=== PATIENT | female | born 1990 | race American Indian/Alaskan Native ===

== ENCOUNTER 2017-08-23 18:20 | Inpatient (IN) | payer MEDICAID ==
[2017-08-23] MEDS ORDERED: TYLENOL ONE ×2 (19:26→20:11)
[2017-08-23] MEDS ORDERED: TYLENOL PO STA (19:38)
[2017-08-23] MEDS ORDERED: NACL 0.9% 500 ML 500 ML IV ONE (19:38)
[2017-08-23 19:49] LABS: Basophils % (Auto) 0.4 % (0.0-1.8); Eosinophils % (Auto) 0.4 % (0.0-4.3); Hematocrit 31.6 % (30.3-42.9); Hemoglobin 10.3 gm/dl (10.1-14.3); Lymphocytes # (Auto) 0.7 K/mm3 (1.2-5.4); Lymphocytes % (Auto) 6.4 % (13.4-35.0); Mean Corpuscular HGB Conc 33 % (30-34); Mean Corpuscular Hemoglobin 27 pg (28-32); Mean Corpuscular Volume 83 fl (79-97); Monocytes # (Auto) 0.3 K/mm3 (0.0-0.8); Monocytes % (Auto) 3.1 % (0.0-7.3); Platelet Count 345 K/mm3 (140-440)
[2017-08-23 19:59] LABS: INR 0.97 (0.87-1.13)
[2017-08-23 20:01] LABS: Alanine Aminotransferase 8 units/L (7-56); BUN/Creatinine Ratio 17; Blood Urea Nitrogen 10 mg/dL (7-17); Calcium 8.7 mg/dL (8.4-10.2); Hemolysis Index 6
[2017-08-23] MEDS ORDERED: ZITHROMAX 500 MG in NACL 0.9% 250ML 250 ML IV ONE (20:40)
[2017-08-23] MEDS ORDERED: cefTRIAXone 1 GM in NACL 0.9% 20 ML IV ONE (20:40)
[2017-08-23] MEDS ORDERED: XOPENEX IH ONE (20:41)
[2017-08-23] MEDS ORDERED: TORADOL IV ONE (20:42)
--- NOTE | 2017-08-23 20:53 | Emergency Department Report ---
HPI - General Chief Complaint: Dyspnea/Respdistress Time Seen by Provider: 08/23/17 20:15 - HPI HPI: 27-year-old AA female presents to the emergency department via EMS from home with complaint of a one-week history of progressively worsening shortness of breath, productive cough, joint pain, abdominal pain, nausea, vomiting, diarrhea , intermittent blurry vision. Apparently the patient also had hypoxia with a room air oxygen of 86% upon EMS arrival and she was placed on a nonrebreather. The patient went to another hospital about 2 weeks ago for oral thrush. She says that shortly after starting taking that medication she began developing some of the symptoms and wonders if it is related. She is a former smoker but has not smoked since the thrush. She denies any past medical history other then some recurrent bronchitis. She's not had a primary care physician. She did not take anything for her symptoms prior to presentation. She presents with a fever of 103 Fahrenheit and says that she did not check her temperature at home but she has had moments where she felt warm and shaky with chills. No recent travel or sick contacts at home. ED Past Medical Hx - Past Medical History Previous Medical History?: Yes Hx Asthma: Yes Additional medical history: thrush. bacterial vag - Surgical History Past Surgical History?: No - Social History Smoking Status: Never Smoker Substance Use Type: None - Medications Home Medications: Home Medications Medication Instructions Recorded Confirmed Last Taken Type No Known Home Medications [No 08/24/17 08/24/17 Unknown History Reported Home Medications] ED Review of Systems ROS: Stated complaint: GENERAL ILLNESS Other details as noted in HPI Comment: All other systems reviewed and negative Constitutional: chills, fever Eyes: vision change. denies: eye pain, eye discharge ENT: denies: ear pain, throat pain Respiratory: cough, shortness of breath. denies: wheezing Cardiovascular: denies: chest pain, palpitations Gastrointestinal: abdominal pain, nausea, vomiting, diarrhea Genitourinary: denies: urgency, dysuria, discharge Musculoskeletal: arthralgia, myalgia Skin: denies: rash, lesions Neurological: denies: numbness, paresthesias Physical Exam - Physical Exam Vital Signs: Vital Signs 08/23/17 19:28 Temperature 103.1 F H Pulse Rate 118 H Respiratory 24 Rate Blood Pressure 101/64 O2 Sat by Pulse 91 Oximetry Physical Exam: GENERAL: The patient is well-developed well-nourished. HENT: Normocephalic. Atraumatic. Patient has moist mucous membranes. EYES: Extraocular motions are intact. Pupils equal reactive to light bilaterally. NECK: Supple. Trachea is midline. CHEST/LUNGS: There is some rhonchi heard throughout the lungs. There is tachypnea but no accessory muscle use. There is no respiratory distress noted. HEART/CARDIOVASCULAR: Regular. There is mild to moderate tachycardia. There is no murmur. ABDOMEN: Abdomen is soft, nontender. Patient has normal bowel sounds. There is no abdominal distention. SKIN: Skin is hot but dry. NEURO: The patient is awake, alert, and oriented. The patient is cooperative. The patient has no focal neurologic deficits. The patient has normal speech. MUSCULOSKELETAL: There is no tenderness or deformity. There is no limitation range of motion. There is no evidence of acute injury. ED Course Vital Signs 08/23/17 19:28 Temperature 103.1 F H Pulse Rate 118 H Respiratory 24 Rate Blood Pressure 101/64 O2 Sat by Pulse 91 Oximetry ED Medical Decision Making - Lab Data Result diagrams: 08/23/17 19:40 08/23/17 19:40 - EKG Data -: EKG Interpreted by Me EKG shows normal: sinus rhythm, axis, intervals, QRS complexes, ST-T waves Rate: tachycardia (107 bpm) - EKG Data When compared to previous EKG there are: previous EKG unavailable Interpretation: normal EKG (with tachycardia 107 bpm) - Radiology Data Radiology results: report reviewed, image reviewed interpreted by me: Chest x-ray shows some opacity or infiltrate towards the right lower lung concerning for pneumonia. No obvious pleural effusions. PROCEDURE: CT ANGIO CHEST TECHNIQUE: Computerized tomographic angiography of the chest was performed after the IV injection of iodinated nonionic contrast including image processing. The image data was postprocessed using 2-dimensional multiplanar reformatted (MPR) and 3-dimensional (MIP and/or volume rendered) techniques. HISTORY: SOB, elevated dimer COMPARISON: No prior studies are available for comparison. FINDINGS: Heart and pericardium: Normal. Thoracic aorta: Normal. Pulmonary vasculature: There is no evidence of pulmonary arterial emboli. Lymph nodes: No enlarged thoracic lymph nodes. Lungs: Scattered infiltrates identified throughout both lungs. Mild atelectasis bilateral lower lungs. No effusion or pneumothorax. The central airway is patent. Pleural space: No effusion, thickening, or pneumothorax. Musculoskeletal structures: No significant abnormality. Upper abdominal structures: No significant abnormality. IMPRESSION: Scattered infiltrates throughout both lungs. Mild atelectasis both lower lungs. There is no evidence of pulmonary arterial emboli. Transcribed By: [facility] Dictated By: JACE RICH MD Electronically Authenticated By: JACE RICH MD Signed Date/Time: 08/23/17 6803 - Medical Decision Making Patient presents with multiple complaints including body aches, fever, chills, cough, shortness of breath. She appears to have pneumonia and sepsis. The labs are mostly unremarkable. However the lungs sounded rhonchorous on examination and she has some tachycardia and tachypnea. Chest x-ray showed some concern for right lower lobe infiltrate. The patient's labs show a very elevated d-dimer and therefore a CT angiography was done that showed scattered infiltrates throughout both lungs. The patient began having some hypotension that improved or responded to IV fluid. However she will be admitted to the hospital for further evaluation and treatment. Blood culture sent and the patient was started on azithromycin and Rocephin for community-acquired pneumonia. Patient was accepted for admission by the hospitalist, Dr. Vieira. - Differential Diagnosis Pneumonia, Sepsis, HIV, Influenza Critical Care Time: No Critical care attestation.: If time is entered above; I have spent that time in minutes in the direct care of this critically ill patient, excluding procedure time. ED Disposition Clinical Impression: Sepsis Qualifiers: Sepsis type: sepsis due to unspecified organism Qualified Code(s): A41.9 - Sepsis, unspecified organism Pneumonia Qualifiers: Pneumonia type: due to unspecified organism Laterality: unspecified laterality Lung location: unspecified part of lung Qualified Code(s): J18.9 - Pneumonia, unspecified organism Hypotension Qualifiers: Hypotension type: unspecified hypotension type Qualified Code(s): I95.9 - Hypotension, unspecified Disposition: 09 OP ADMIT IP TO THIS HOSP Is pt being admited?: Yes Condition: Fair Instructions: Bacterial Pneumonia (ED) Referrals: PRIMARY CARE, [Primary Care Provider] - 3-5 Days Time of Disposition: 02:04
[2017-08-23 21:54] LABS: Bacteria,Urine 1+ /HPF (Negative); Bilirubin,Urine NEG (Negative); Blood,Urine NEG (Negative); Color,Urine Yellow (Yellow); Mucus,Urine FEW /HPF; Protein,Urine <15 mg/dL mg/dL (Negative); Urobilinogen,Urine < 2.0 mg/dL (<2.0)
--- NOTE | 2017-08-23 22:01 | XRay Report ---
FINAL REPORT EXAM: XR CHEST 1V AP HISTORY: possible Sepsis TECHNIQUE: AP portable view(s) of the chest obtained. PRIORS: None. FINDINGS: No mediastinal shift. Cardiac silhouette is not enlarged. No pneumothorax or effusion. Ill-defined right basilar opacity. No acute skeletal finding. IMPRESSION: Ill-defined right basilar opacity may represent superimposition of breast tissue, atelectasis and/or infection. Consider lateral chest radiograph and/or follow-up.
[2017-08-23] MEDS ORDERED: NACL 0.9% 1000 ML 1,000 ML IV ONE (22:10)
[2017-08-23] MEDS ORDERED: DUONEB *Not for PRN Use IH ONE (22:11)
[2017-08-23] MEDS ORDERED: NACL ONE (22:54)
--- NOTE | 2017-08-23 23:57 | Cat Scan Report ---
FINAL REPORT PROCEDURE: CT ANGIO CHEST TECHNIQUE: Computerized tomographic angiography of the chest was performed after the IV injection of iodinated nonionic contrast including image processing. The image data was postprocessed using 2-dimensional multiplanar reformatted (MPR) and 3-dimensional (MIP and/or volume rendered) techniques. HISTORY: SOB, elevated dimer COMPARISON: No prior studies are available for comparison. FINDINGS: Heart and pericardium: Normal. Thoracic aorta: Normal. Pulmonary vasculature: There is no evidence of pulmonary arterial emboli. Lymph nodes: No enlarged thoracic lymph nodes. Lungs: Scattered infiltrates identified throughout both lungs. Mild atelectasis bilateral lower lungs. No effusion or pneumothorax. The central airway is patent. Pleural space: No effusion, thickening, or pneumothorax. Musculoskeletal structures: No significant abnormality. Upper abdominal structures: No significant abnormality. IMPRESSION: Scattered infiltrates throughout both lungs. Mild atelectasis both lower lungs. There is no evidence of pulmonary arterial emboli.
[2017-08-24] MEDS ORDERED: NACL 0.9% 1000 ML 1,000 ML IV ONE ×2 (00:03→04:20)
[2017-08-24] MEDS ORDERED: ZOFRAN IV PRN (02:41)
--- NOTE | 2017-08-24 06:46 | History and Physical Report ---
CHIEF COMPLAINT: Shortness of breath. HISTORY OF PRESENT ILLNESS: The patient is a 27-year-old female who presented to the Emergency Room with difficulty in breathing, productive cough, body aches involving the joints and the abdomen. There is also history of nausea and vomiting and intermittently blurry vision. The patient was brought in by EMS who found that the patient's O2 sat was as low as 86 and the patient was put on 100% on nonrebreather. The patient states she was sick about 2 weeks ago with oral thrush and was placed on some medication, which she said that she took and then started developing these symptoms and was wondering whether it is related to the medication. The patient denied history of chest pain, has fever as high as 103 degrees Fahrenheit. There is no history of recent overseas travel. PAST MEDICAL HISTORY: Pertinent for asthma and thrush. PAST SURGICAL HISTORY: Unremarkable. FAMILY HISTORY: Noncontributory. SOCIAL HISTORY: The patient does not smoke cigarettes, used to smoke before. Does not drink alcohol and does not use illicit drugs. MEDICATIONS: The patient is not on any medications currently. ALLERGIES: There are no known drug allergies. REVIEW OF SYSTEMS: CONSTITUTIONAL: There is fever. There are chills, but no diaphoresis. HEENT: There is no headache or sore throat. CARDIOVASCULAR: There is no chest pain or orthopnea. RESPIRATORY: Shortness of breath is present, cough present. GASTROINTESTINAL: There is nausea and vomiting, but no abdominal pain, diarrhea or constipation. NEUROLOGICAL: There is no numbness, no dizziness. There is blurry vision. No altered mental status. MUSCULOSKELETAL: There are body aches and joint pain. DERMATOLOGICAL: There is no skin rash or itching. GENITOURINARY: There is no dysuria, hematuria or flank pain. Rest of system review is normal. PHYSICAL EXAMINATION: GENERAL: At the time of exam, the patient was found to be alert, oriented x 3 and not in acute distress. VITAL SIGNS: At the time of presentation showed elevated temperature of 103.1 degrees Fahrenheit, pulse of 118, respiratory rate of 24, blood pressure of 101/64, O2 sat of 91% on room air. HEENT: Showed pupils to be equal, round, reactive to light and accommodation. Extraocular motions are intact. NECK: Supple with no JVD or carotid bruit. CARDIOVASCULAR: Showed normal first and second heart sounds with no gallops or murmur, but heart rate is fast. RESPIRATORY: Shows reduced air entry on both sides of the lung with scattered crackles. GASTROINTESTINAL: Shows abdomen to be full, soft, nontender with no organomegaly or rigidity. NEUROLOGICAL: Shows no focal deficit. MUSCULOSKELETAL: Shows no joint swelling or tenderness. DERMATOLOGICAL: Showing no skin rash. GENITOURINARY: Showing no costovertebral angle tenderness. PERTINENT LABORATORY DATA AND IMAGING STUDIES: The patient had chest x-ray done that shows right basilar opacity that may represent superimposition of breast tissue, this was atelectasis or infection. Consider later a chest radiograph according to the radiologist and followup x-ray. The patient had CT angiogram done that shows scattered infiltrates throughout both lungs, mild atelectasis of both lower lungs. CT shows no evidence of pulmonary emboli. DIAGNOSES: Pneumonia bilaterally. PLAN: The patient will be admitted to medical floor and will be on IV ceftriaxone 1 g daily as well as Zithromax 500 mg daily. The patient will also be on Tylenol 650 mg by mouth every 4 hours for fever, headache and will be on Robitussin 200 mg by mouth every 4 hours for cough. The patient will be on oxygen by nasal cannula at 2 liter per minute and will be on Zofran 4 mg every 8 hours IV for nausea and vomiting. The patient will be on heparin 5000 units q. 12 hours for DVT prophylaxis. JOB# [id number] OCN/NTS
[2017-08-24] MEDS ORDERED: DUONEB *Not for PRN Use IH ONE (09:57)
[2017-08-24] MEDS ORDERED: ZITHROMAX 500 MG in NACL 0.9% 250ML 250 ML IV SCH (10:00)
[2017-08-24] MEDS ORDERED: cefTRIAXone 1 GM in NACL 0.9% 20 ML IV SCH (10:00)
[2017-08-24] MEDS ORDERED: ROCEPHIN/NS 1 GM/50 ML 1 GM/50 ML BAG IV SCH (10:00)
--- NOTE | 2017-08-24 10:06 | Event Note ---
Date: 08/24/17 Patient seen and examined. An additional 32 minutes spent after admission. We will continue the plan as outlined in H&P.
[2017-08-24] MEDS: HEPARIN SUB-Q SCH ×2 (10:27→21:32)
[2017-08-24] MEDS: ROBITUSSIN PO PRN ×3 (10:39→21:32)
[2017-08-24] MEDS: TYLENOL PO PRN ×3 (10:40→23:33)
[2017-08-24] MEDS: NACL 0.9% 1000 ML 1,000 ML IV SCH (17:30)
[2017-08-25] MEDS: ROBITUSSIN PO PRN (01:12)
[2017-08-25] MEDS: DUONEB *Not for PRN Use IH SCH ×4 (05:25→20:59)
[2017-08-25] MEDS: TESSALON PERLES PO SCH ×3 (06:20→18:04)
[2017-08-25] MEDS: TYLENOL PO PRN (06:22)
[2017-08-25] MEDS ORDERED: PHENERGAN DM PO PRN (06:59)
[2017-08-25] MEDS ORDERED: ZOSYN/NS 4.5GM/100ML 4.5 GM/100 ML VIAL IV SCH (07:00)
[2017-08-25] MEDS ORDERED: VANCOMYCIN PHARMACY TO DOSE IV SCH (07:00)
[2017-08-25 07:26] LABS: Hematocrit 27.8 % (30.3-42.9); Hemoglobin 9.2 gm/dl (10.1-14.3); Mean Corpuscular HGB Conc 33 % (30-34); Mean Corpuscular Hemoglobin 27 pg (28-32); Mean Corpuscular Volume 82 fl (79-97); Platelet Count 296 K/mm3 (140-440); Red Blood Count 3.38 M/mm3 (3.65-5.03)
[2017-08-25] MEDS: NACL 0.9% 1000 ML 1,000 ML IV SCH (07:42)
[2017-08-25 07:44] LABS: BUN/Creatinine Ratio 18; Blood Urea Nitrogen 7 mg/dL (7-17); Calcium 8.1 mg/dL (8.4-10.2); Hemolysis Index 3
[2017-08-25] MEDS ORDERED: VANCOMYCIN/0.45 NS 1 GM/250 ML 1 GM/250 ML BAG IV ONE ×2 (08:00→10:30)
[2017-08-25] MEDS ORDERED: DUONEB *Not for PRN Use IH SCH (08:00)
[2017-08-25 08:20] LABS: Band Neutrophils # (Manual) 0.7 K/mm3; Basophils % (Manual) 0 % (0.0-1.8); Eosinophils % (Manual) 0 % (0.0-4.3); Total Cells Counted 100
[2017-08-25 08:21] LABS: Anisocytosis 1+
[2017-08-25 08:22] LABS: Hypochromasia Few; Large Platelets Few
[2017-08-25] MEDS: LEVAQUIN 750MG/150ML 750 MG/150 ML BAG IV SCH (09:45)
[2017-08-25] MEDS: DIFLUCAN PO SCH (09:46)
[2017-08-25] MEDS: PROTONIX PO SCH (09:46)
[2017-08-25] MEDS: HEPARIN SUB-Q SCH ×2 (09:49→22:35)
[2017-08-25] MEDS ORDERED: BACTRIM DS PO SCH ×2 (10:00)
--- NOTE | 2017-08-25 12:54 | Progress Note ---
Assessment and Plan Assessment and plan: Patient is 27-year-old woman with a history of asthma who presents with shortness of breath, pulse ox 86%. Patient denies having HIV. -Acute hypoxia respiratory failure: Treated with oxygen -Bilateral pneumonia: Treated with IV antibiotics, discussed with the possible PCP, added Bactrim and IV steroids -Oral Thrush: Consulted ID, ordered Diflucan -Severe cough: Added promethazine for cough at night and Robitussin-AC -?HIV: I d/w ID and ordered rapid HIV test. History Interval history: Patient was seen and examined. Follow-up on current diagnosis of fever which is present. Overnight uneventful. Patient denies any chest pain, shortness breath, nausea/vomiting or severe headaches. Imaging, nursing note, chart, labs and old chart reviewed. Discussed with patient. Mother bedside. Patient main complaint is cough, robitussion, Tessalon Perles not helping. She says promethazine helps. Hospitalist Physical - Physical exam Narrative exam: GEN: Thin frail ill-appearing, NAD, AWAKE, ALERT, ORIENTATED 3 HEENT: NCAT, EOMI, PERRL, OP whitish plaques NECK: supple, no adenopathy, no thyromegaly, no JVD CVS/HEART: RRR, NORMAL S1S2, pulses present bilaterally CHEST/LUNGS: Bibasilar crackles with coarse breath sounds bilaterally Symmetrical chest expansion, diminished air entry bilaterally GI/Abdomen: soft, NTND, good bowel sounds, no guarding or rebound /Bladder: no suprapubic tenderness, no CVA or paraspinal tenderness EXT/Skin: no c/c/e, no obvious rash MSK: FROM x 4 Neuro: CN 2-12 grossly intact, no new focal deficits Psych: Anxious - Constitutional Vitals: Temp Pulse Resp BP Pulse Ox 101.2 F H 93 H 20 103/54 96 08/25/17 09:41 08/25/17 10:00 08/25/17 10:00 08/25/17 09:41 08/25/17 10:00 Results - Labs CBC & Chem 7: 08/25/17 06:39 08/25/17 06:39 Labs: Laboratory Last Values WBC 8.9 K/mm3 (4.5-11.0) 08/25/17 06:39 RBC 3.38 M/mm3 (3.65-5.03) L 08/25/17 06:39 Hgb 9.2 gm/dl (10.1-14.3) L 08/25/17 06:39 Hct 27.8 % (30.3-42.9) L 08/25/17 06:39 MCV 82 fl (79-97) 08/25/17 06:39 MCH 27 pg (28-32) L 08/25/17 06:39 MCHC 33 % (30-34) 08/25/17 06:39 RDW 14.0 % (13.2-15.2) 08/25/17 06:39 Plt Count 296 K/mm3 (140-440) 08/25/17 06:39 Lymph % (Auto) 6.4 % (13.4-35.0) L 08/23/17 19:40 [place] % (Auto) 3.1 % (0.0-7.3) 08/23/17 19:40 Eos % (Auto) 0.4 % (0.0-4.3) 08/23/17 19:40 Baso % (Auto) 0.4 % (0.0-1.8) 08/23/17 19:40 Lymph # 0.7 K/mm3 (1.2-5.4) L 08/23/17 19:40 [place] # 0.3 K/mm3 (0.0-0.8) 08/23/17 19:40 Eos # 0.0 K/mm3 (0.0-0.4) 08/23/17 19:40 Baso # 0.0 K/mm3 (0.0-0.1) 08/23/17 19:40 Add Manual Diff Complete 08/25/17 06:39 Total Counted 100 08/25/17 06:39 Seg Neutrophils % Radiation Safety Officer 08/25/17 06:39 Seg Neuts % (Manual) 85.0 % (40.0-70.0) H 08/25/17 06:39 Band Neutrophils % 8.0 % 08/25/17 06:39 Lymphocytes % (Manual) 4.0 % (13.4-35.0) L 08/25/17 06:39 Reactive Lymphs % (Man) 0 % 08/25/17 06:39 Monocytes % (Manual) 3.0 % (0.0-7.3) 08/25/17 06:39 Eosinophils % (Manual) 0 % (0.0-4.3) 08/25/17 06:39 Basophils % (Manual) 0 % (0.0-1.8) 08/25/17 06:39 Metamyelocytes % 0 % 08/25/17 06:39 Myelocytes % 0 % 08/25/17 06:39 Promyelocytes % 0 % 08/25/17 06:39 Blast Cells % 0 % 08/25/17 06:39 Nucleated RBC % Not Reportable 08/25/17 06:39 Seg Neutrophils # 9.8 K/mm3 (1.8-7.7) H 08/23/17 19:40 Seg Neutrophils # Man 7.6 K/mm3 (1.8-7.7) 08/25/17 06:39 Band Neutrophils # 0.7 K/mm3 08/25/17 06:39 Lymphocytes # (Manual) 0.4 K/mm3 (1.2-5.4) L 08/25/17 06:39 Abs React Lymphs (Man) 0.0 K/mm3 08/25/17 06:39 Monocytes # (Manual) 0.3 K/mm3 (0.0-0.8) 08/25/17 06:39 Eosinophils # (Manual) 0.0 K/mm3 (0.0-0.4) 08/25/17 06:39 Basophils # (Manual) 0.0 K/mm3 (0.0-0.1) 08/25/17 06:39 Metamyelocytes # 0.0 K/mm3 08/25/17 06:39 Myelocytes # 0.0 K/mm3 08/25/17 06:39 Promyelocytes # 0.0 K/mm3 08/25/17 06:39 Blast Cells # 0.0 K/mm3 08/25/17 06:39 WBC Morphology Not Reportable 08/25/17 06:39 Hypersegmented Neuts Not Reportable 08/25/17 06:39 Hyposegmented Neuts Not Reportable 08/25/17 06:39 Hypogranular Neuts Not Reportable 08/25/17 06:39 Smudge Cells Not Reportable 08/25/17 06:39 Toxic Granulation Not Reportable 08/25/17 06:39 Toxic Vacuolation Not Reportable 08/25/17 06:39 Dohle Bodies Not Reportable 08/25/17 06:39 Pelger-Huet Anomaly Not Reportable 08/25/17 06:39 Marcela Rods Not Reportable 08/25/17 06:39 Platelet Estimate Appears normal 08/25/17 06:39 Clumped Platelets Not Reportable 08/25/17 06:39 Plt Clumps, EDTA Not Reportable 08/25/17 06:39 Large Platelets Few 08/25/17 06:39 Giant Platelets Not Reportable 08/25/17 06:39 Platelet Satelliting Not Reportable 08/25/17 06:39 Plt Morphology Comment Not Reportable 08/25/17 06:39 RBC Morphology Not Reportable 08/25/17 06:39 Dimorphic RBCs Not Reportable 08/25/17 06:39 Polychromasia Not Reportable 08/25/17 06:39 Hypochromasia Few 08/25/17 06:39 Poikilocytosis Not Reportable 08/25/17 06:39 Anisocytosis 1+ 08/25/17 06:39 Microcytosis Not Reportable 08/25/17 06:39 Macrocytosis Not Reportable 08/25/17 06:39 Spherocytes Not Reportable 08/25/17 06:39 Pappenheimer Bodies Not Reportable 08/25/17 06:39 Sickle Cells Not Reportable 08/25/17 06:39 Target Cells Not Reportable 08/25/17 06:39 Tear Drop Cells Not Reportable 08/25/17 06:39 Ovalocytes Not Reportable 08/25/17 06:39 Helmet Cells Not Reportable 08/25/17 06:39 Daily-Warba Bodies Not Reportable 08/25/17 06:39 [place]pton Rings Not Reportable 08/25/17 06:39 Redmon Cells Not Reportable 08/25/17 06:39 Bite Cells Not Reportable 08/25/17 06:39 Crenated Cell Not Reportable 08/25/17 06:39 Elliptocytes Not Reportable 08/25/17 06:39 Acanthocytes (Spur) Not Reportable 08/25/17 06:39 Rouleaux Not Reportable 08/25/17 06:39 Hemoglobin C Crystals Not Reportable 08/25/17 06:39 Schistocytes Not Reportable 08/25/17 06:39 Malaria parasites Not Reportable 08/25/17 06:39 Jairo Bodies Not Reportable 08/25/17 06:39 Hem Pathologist Commnt No 08/25/17 06:39 PT 13.4 Sec. (12.2-14.9) 08/23/17 19:40 INR 0.97 (0.87-1.13) 08/23/17 19:40 D-Dimer 1979.54 ng/mlDDU (0-234) H 08/23/17 22:20 VBG pH 7.367 (7.320-7.420) 08/23/17 19:47 Sodium 136 mmol/L (137-145) L 08/25/17 06:39 Potassium 4.0 mmol/L (3.6-5.0) 08/25/17 06:39 Chloride 103.5 mmol/L (98-107) 08/25/17 06:39 Carbon Dioxide 20 mmol/L (22-30) L 08/25/17 06:39 Anion Gap 17 mmol/L 08/25/17 06:39 BUN 7 mg/dL (7-17) 08/25/17 06:39 Creatinine 0.4 mg/dL (0.7-1.2) L 08/25/17 06:39 Estimated GFR > 60 ml/min 08/25/17 06:39 BUN/Creatinine Ratio 18 % 08/25/17 06:39 Glucose 90 mg/dL (65-100) 08/25/17 06:39 Lactic Acid 0.70 mmol/L (0.7-2.0) 08/23/17 22:34 Calcium 8.1 mg/dL (8.4-10.2) L 08/25/17 06:39 Total Bilirubin 0.30 mg/dL (0.1-1.2) 08/23/17 19:40 AST 31 units/L (5-40) 08/23/17 19:40 ALT 8 units/L (7-56) 08/23/17 19:40 Alkaline Phosphatase 54 units/L (35-129) 08/23/17 19:40 Total Protein 8.1 g/dL (6.3-8.2) 08/23/17 19:40 Albumin 3.0 g/dL (3.9-5) L 08/23/17 19:40 Albumin/Globulin Ratio 0.6 % 08/23/17 19:40 HCG, Qual Negative (Negative) 08/23/17 19:40 Urine Color Yellow (Yellow) 08/23/17 21:35 Urine Turbidity Clear (Clear) 08/23/17 21:35 Urine pH 7.0 (5.0-7.0) 08/23/17 21:35 Ur Specific [place] 1.015 (1.003-1.030) 08/23/17 21:35 Urine Protein <15 mg/dl mg/dL (Negative) 08/23/17 21:35 Urine Glucose (UA) Neg mg/dL (Negative) 08/23/17 21:35 Urine Ketones Neg mg/dL (Negative) 08/23/17 21:35 Urine Blood Neg (Negative) 08/23/17 21:35 Urine Nitrite Neg (Negative) 08/23/17 21:35 Urine Bilirubin Neg (Negative) 08/23/17 21:35 Urine Urobilinogen < 2.0 mg/dL (<2.0) 08/23/17 21:35 Ur Leukocyte Esterase Neg (Negative) 08/23/17 21:35 Urine WBC (Auto) 2.0 /HPF (0.0-6.0) 08/23/17 21:35 Urine RBC (Auto) 6.0 /HPF (0.0-6.0) 08/23/17 21:35 U Epithel Cells (Auto) 6.0 /HPF (0-13.0) 08/23/17 21:35 Urine Bacteria (Auto) 1+ /HPF (Negative) 08/23/17 21:35 Urine Mucus Few /HPF 08/23/17 21:35 HIV 1&2 Antibody Rapid Reactive (Non React) 08/25/17 09:00 HIV P24 Antigen Non react (Non React) 08/25/17 09:00 Influenza A (Rapid) Negative (Negative) 08/23/17 21:35 Influenza B (Rapid) Negative (Negative) 08/23/17 21:35
--- NOTE | 2017-08-25 15:34 | Consultation ---
History of Present Illness - Reason for Consult Consult date: 08/25/17 bilateral pneumonia Requesting physician: JACOB DOUGLAS - History of Present Illness 27 years old female, without any past medical history, admitted on due to three- week history of progressive cough, dry, and shortness of breath associated with 40 pound weight loss for the last 2 months. Patient is also complaining of body aches. Patient was transported by EMS and her O2 sat was found to be 86. The patient was placed on nonrebreather. Patient reports that 2 weeks ago which was found to have oral candidiasis and was given fluconazole she is is former smoker. She is single without 9 years old son. Denies alcohol, tobacco under local abuse. She has had 2 sexual partners last 12 month inconsistent condom use. In the ED, initial temperature 103.1, heart rate 118, respiration 24, O2 sat 91 , blood pressure 101/84. Initial white count 11. Hemoglobin 10.3. 345. D- dimer 1974. CTA showed no PE however show bilateral scattered infiltrates. Urinalysis is negative. HIV rapid antigen positive. Influenza A and B-. Microbiology: Blood cultures: 08/23 ngtd Urine cultures: 08/23 10-100K Current Antimicrobials: Bactrim 08/23 Levaquin 08/23 Previous Antimicrobials: Past History Past Medical History: No medical history Past Surgical History: No surgical history Social history: no significant social history Family history: no significant family history Medications and Allergies Allergies Allergy/AdvReac Type Severity Reaction Status Date / Time No Known Allergies Allergy Verified 08/23/17 19:38 Home Medications Medication Instructions Recorded Confirmed Last Taken Type No Known Home Medications [No 08/24/17 08/24/17 Unknown History Reported Home Medications] Active Meds: Active Medications Acetaminophen (Tylenol) 650 mg PO Q4H PRN PRN Reason: For Pain/Fever/Headache Last Admin: 08/25/17 06:22 Dose: 650 mg Albuterol/Ipratropium (Duoneb *Not For Prn Use*) 1 ampul IH TIDRT [facility] Last Admin: 08/25/17 14:36 Dose: 1 ampul Benzonatate (Tessalon Perles) 100 mg PO Q6HR [facility] Last Admin: 08/25/17 12:30 Dose: 100 mg Fluconazole (Diflucan) 200 mg PO QDAY [facility] Last Admin: 08/25/17 09:46 Dose: 200 mg Heparin Sodium (Porcine) (Heparin) 5,000 unit SUB-Q Q12HR [facility] Last Admin: 08/25/17 09:49 Dose: 5,000 unit Sodium Chloride (Nacl 0.9% 1000 Ml) 1,000 mls @ 150 mls/hr IV DIRECT [facility] Last Admin: 08/25/17 07:42 Dose: 150 mls/hr Levofloxacin/Dextrose (Levaquin 750mg/150ml) 750 mg in 150 mls @ 100 mls/hr IV Q24HR [facility]; Protocol Last Admin: 08/25/17 09:45 Dose: 100 mls/hr Vancomycin HCl (Vancomycin/0.45 Ns 1 Gm/250 Ml) 1 gm in 250 mls @ 167.007 mls/ hr IV Q12H [facility] Methylprednisolone Sodium Succinate (Solu-Medrol) 125 mg IV Q8HR [facility] Last Admin: 08/25/17 14:45 Dose: 125 mg Pantoprazole Sodium (Protonix) 40 mg PO QDAY [facility] Last Admin: 08/25/17 09:46 Dose: 40 mg Promethazine HCl/Dextromethorphan (Phenergan Dm 6.25/15 Mg 5 Ml) 5 ml PO QHS PRN PRN Reason: Cough Pseudoephedrine/Acetam/Chlorphenir (Robitussin Ac) 10 ml PO Q4H PRN PRN Reason: Cough Trimethoprim/Sulfamethoxazole (Bactrim Ds) 2 each PO Q12HR [facility] Last Admin: 08/25/17 09:46 Dose: 2 each Physical Examination - Physical Exam Narrative exam: General appearance: Alert in mild respiratory distress, pleasant, cachectic Eyes: anicteric sclerae, moist conjunctivae; no lid-lag; PERRLA HENT: Atraumatic; oropharynx mild erythema Neck: Trachea midline; supple, no thyromegaly or lymphadenopathy Lungs: Bilateral crackles CV: Tachycardic Abdomen: Soft, non-tender; no masses or hepatosplenomegaly Extremities: No peripheral edema or extremity lymphadenopathy Skin: Normal temperature, turgor and texture; no rash, ulcers or subcutaneous nodules Psych: Appropriate affect, alert and oriented to person, place and time. Neuro: alert and oriented x 3. Moving all extermities Lines: No CVL / PICC - Constitutional Vitals: Vital Signs Temp Pulse Resp BP Pulse Ox 98.1 F 98 H 20 101/64 98 08/25/17 12:54 08/25/17 12:55 08/25/17 12:54 08/25/17 12:55 08/25/17 12:55 Temperature -Last 24 Hours Temperature 98.1 F Temperature 101.2 F Temperature 100.0 F Temperature 102.2 F Temperature 98.6 F Results - Labs CBC & Chem 7: 08/25/17 06:39 08/25/17 06:39 Labs: Abnormal lab results 08/25/17 08/25/17 Range/Units 06:39 06:39 RBC 3.38 L (3.65-5.03) M/mm3 Hgb 9.2 L (10.1-14.3) gm/dl Hct 27.8 L (30.3-42.9) % MCH 27 L (28-32) pg Seg Neuts % (Manual) 85.0 H (40.0-70.0) % Lymphocytes % (Manual) 4.0 L (13.4-35.0) % Lymphocytes # (Manual) 0.4 L (1.2-5.4) K/mm3 Sodium 136 L (137-145) mmol/L Carbon Dioxide 20 L (22-30) mmol/L Creatinine 0.4 L (0.7-1.2) mg/dL Calcium 8.1 L (8.4-10.2) mg/dL Assessment and Plan Assessment: 1) Sepsis: Present on admission, manifested by fever, tachycardia, hypotension. Etiology most likely PJP pneumonia. 2) Acute respiratory failure 3) Likely PJP pneumonia: -CTA showed no PE however show bilateral scattered infiltrates. -Influenza A and B-. 4) Newly diagnosed HIV / AIDS: HIV rapid antigen positive. 5) Weight loss Plan: -Increase Bactrim DS to 2 tablets by mouth 3 times a day -Send sputum for PJP DFA -Hypoxemia may get worse after Bactrim treatment and started -Add prednisone 40 mg by mouth twice a day in view of hypoxemia -Obtain HIV viral load, genotype, and CD4 -Obtain viral hepatitis panel, RPR, GC and chlamydia -Continue Levaquin for now -monitor hypoxemia Thank you for your consultation, will follow up with you. Tete Vargas MD Infectious Diseases Specialist [facility] ([facility] M [phone] O [phone]
[2017-08-25] MEDS ORDERED: VANCOMYCIN 750 MG in NACL 0.9% 250ML 250 ML IV SCH (16:00)
[2017-08-25 17:19] LABS: Hepatitis A Antibody IgM Non-Reactive (NonReactive); Hepatitis B Core IgM Non-Reactive (NonReactive); Hepatitis B Surface Antigen Non-Reactive (Negative); Hepatitis C Virus Antibody Non-Reactive (NonReactive)
[2017-08-25] MEDS: DELTASONE PO SCH (18:03)
[2017-08-25] MEDS: ROBITUSSIN AC PO PRN (22:28)
[2017-08-25] MEDS: BACTRIM DS PO SCH (22:29)
[2017-08-26] MEDS ORDERED: VANCOMYCIN/0.45 NS 1 GM/250 ML 1 GM/250 ML BAG IV SCH
[2017-08-26] MEDS: ROBITUSSIN AC PO PRN ×4 (03:30→20:35)
[2017-08-26] MEDS: TESSALON PERLES PO SCH ×4 (06:01→18:40)
[2017-08-26] MEDS: BACTRIM DS PO SCH ×3 (06:06→22:38)
[2017-08-26] MEDS: NACL 0.9% 1000 ML 1,000 ML IV SCH ×3 (06:08→19:33)
[2017-08-26 08:21] LABS: Hematocrit 28.1 % (30.3-42.9); Hemoglobin 9.2 gm/dl (10.1-14.3); Mean Corpuscular HGB Conc 33 % (30-34); Mean Corpuscular Hemoglobin 27 pg (28-32); Mean Corpuscular Volume 83 fl (79-97); Platelet Count 313 K/mm3 (140-440); Red Cell Distribution Width 13.9 % (13.2-15.2)
[2017-08-26 08:48] LABS: BUN/Creatinine Ratio 20; Blood Urea Nitrogen 8 mg/dL (7-17); Calcium 8.5 mg/dL (8.4-10.2); Hemolysis Index 2
[2017-08-26] MEDS: DUONEB *Not for PRN Use IH SCH ×3 (08:53→20:55)
[2017-08-26] MEDS: LEVAQUIN 750MG/150ML 750 MG/150 ML BAG IV SCH (10:27)
[2017-08-26] MEDS: HEPARIN SUB-Q SCH ×2 (10:29→22:38)
[2017-08-26] MEDS: DIFLUCAN PO SCH (10:29)
[2017-08-26] MEDS: DELTASONE PO SCH ×2 (10:29→22:38)
[2017-08-26] MEDS: PROTONIX PO SCH (10:30)
--- NOTE | 2017-08-26 16:05 | Progress Note ---
Assessment and Plan Assessment: 1) Sepsis: improving. Etiology most likely PJP pneumonia. 2) Acute respiratory failure: better on NC O2 3) Likely PJP pneumonia: -CTA showed no PE however show bilateral scattered infiltrates. -Influenza A and B-. 4) Newly diagnosed HIV / AIDS: HIV rapid antigen positive. -RPR neg -Viral hepatitis panel negative 5) Weight loss Plan: -continue Bactrim DS to 2 tablets by mouth 3 times a day- day 2 of 21 -continue Levaquin-day 2 of 5 -f/u sputum for PJP DFA -continue prednisone 40 mg by mouth twice a day in view of hypoxemia for 5 days then 40 mg qday for 5 days, then 20 mg qday for 11 days -f/u HIV viral load, genotype, and CD4 -f/u GC and chlamydia -add azithromycin 1200 mg qweek for MAC prophylaxis -monitor hypoxemia -if clinically better - no fever for 48h, no hypoxemia, ok to d/c home on Bactrim DS to 2 tablets by mouth 3 times a day for 21 days Azithromycin 1200 mg po qweek] Prednisone 40 mg by mouth twice a day for 5 days then 40 mg qday for 5 days, then 20 mg qday for 11 days ID clinic f/u in 3 weeks to start ART I am off until 08/30, ok to call me for questions Thank you for your consultation, will follow up with you. Tete Vargas MD Infectious Diseases Specialist [facility] ([facility] M [phone] O [phone] Subjective Date of service: 08/26/17 Principal diagnosis: PCP pneumonia Interval history: Feels better, SOB better, fever trending down, tmax 100.4 Microbiology: Blood cultures: 08/23 ngtd Urine cultures: 08/23 10-100K Current Antimicrobials: Bactrim 08/23 Levaquin 08/23 Previous Antimicrobials: Objective - Exam Narrative Exam: General appearance: Alert in NAD, pleasant, cachectic Eyes: anicteric sclerae, moist conjunctivae; no lid-lag; PERRLA HENT: Atraumatic; oropharynx mild erythema Neck: Trachea midline; supple, no thyromegaly or lymphadenopathy Lungs: Bilateral crackles CV: Tachycardic Abdomen: Soft, non-tender; no masses or hepatosplenomegaly Extremities: No peripheral edema or extremity lymphadenopathy Skin: Normal temperature, turgor and texture; no rash, ulcers or subcutaneous nodules Psych: Appropriate affect, alert and oriented to person, place and time. Neuro: alert and oriented x 3. Moving all extermities Lines: No CVL / PICC - Constitutional Vitals: Vital Signs Temp Pulse Resp BP Pulse Ox 97.9 F 103 H 20 111/69 95 08/26/17 12:14 08/26/17 14:12 08/26/17 14:12 08/26/17 12:14 08/26/17 12:14 Temperature -Last 24 Hours Temperature 97.9 F Temperature 98.1 F Temperature 98.8 F Temperature 98.1 F Temperature 99.0 F Temperature 100.4 F - Labs CBC & Chem 7: 08/26/17 07:43 08/26/17 07:43 Labs: Abnormal lab results 08/26/17 08/26/17 Range/Units 07:43 07:43 WBC 4.2 L (4.5-11.0) K/mm3 RBC 3.40 L (3.65-5.03) M/mm3 Hgb 9.2 L (10.1-14.3) gm/dl Hct 28.1 L (30.3-42.9) % MCH 27 L (28-32) pg Carbon Dioxide 21 L (22-30) mmol/L Creatinine 0.4 L (0.7-1.2) mg/dL Glucose 149 H (65-100) mg/dL
--- NOTE | 2017-08-26 16:16 | Progress Note ---
Assessment and Plan Assessment and plan: Patient is 27-year-old woman with a history of asthma who presents with shortness of breath, pulse ox 86%. Patient denies having HIV. -Acute hypoxia respiratory failure: Treated with oxygen -Bilateral pneumonia: Treated with IV antibiotics, discussed with the possible PCP, added Bactrim and IV steroids -Oral Thrush: Consulted ID, ordered Diflucan -Severe cough: Added promethazine for cough at night and Robitussin-AC -newly diagnosis HIV with suspected PCP aka PJP pneumonia Dispositon: once afebrile >24 hours then discharge home. History Interval history: Patient was seen and examined. Follow-up on current diagnosis of fever which is present. Overnight uneventful. Patient denies any chest pain, shortness breath, nausea/vomiting or severe headaches. Imaging, nursing note, chart, labs and old chart reviewed. Discussed with patient. Mother bedside. Patient main complaint is cough, robitussion, Tessalon Perles not helping. She says promethazine helps. Hospitalist Physical - Physical exam Narrative exam: GEN: Thin frail ill-appearing, NAD, AWAKE, ALERT, ORIENTATED 3 HEENT: NCAT, EOMI, PERRL, OP whitish plaques NECK: supple, no adenopathy, no thyromegaly, no JVD CVS/HEART: RRR, NORMAL S1S2, pulses present bilaterally CHEST/LUNGS: Bibasilar crackles with coarse breath sounds bilaterally Symmetrical chest expansion, diminished air entry bilaterally GI/Abdomen: soft, NTND, good bowel sounds, no guarding or rebound /Bladder: no suprapubic tenderness, no CVA or paraspinal tenderness EXT/Skin: no c/c/e, no obvious rash MSK: FROM x 4 Neuro: CN 2-12 grossly intact, no new focal deficits Psych: Anxious - Constitutional Vitals: Temp Pulse Resp BP Pulse Ox 97.9 F 103 H 20 111/69 95 08/26/17 12:14 08/26/17 14:12 08/26/17 14:12 08/26/17 12:14 08/26/17 12:14 Results - Labs CBC & Chem 7: 08/26/17 07:43 08/26/17 07:43 Labs: Laboratory Last Values WBC 4.2 K/mm3 (4.5-11.0) L 08/26/17 07:43 RBC 3.40 M/mm3 (3.65-5.03) L 08/26/17 07:43 Hgb 9.2 gm/dl (10.1-14.3) L 08/26/17 07:43 Hct 28.1 % (30.3-42.9) L 08/26/17 07:43 MCV 83 fl (79-97) 08/26/17 07:43 MCH 27 pg (28-32) L 08/26/17 07:43 MCHC 33 % (30-34) 08/26/17 07:43 RDW 13.9 % (13.2-15.2) 08/26/17 07:43 Plt Count 313 K/mm3 (140-440) 08/26/17 07:43 Lymph % (Auto) 6.4 % (13.4-35.0) L 08/23/17 19:40 [place] % (Auto) 3.1 % (0.0-7.3) 08/23/17 19:40 Eos % (Auto) 0.4 % (0.0-4.3) 08/23/17 19:40 Baso % (Auto) 0.4 % (0.0-1.8) 08/23/17 19:40 Lymph # 0.7 K/mm3 (1.2-5.4) L 08/23/17 19:40 [place] # 0.3 K/mm3 (0.0-0.8) 08/23/17 19:40 Eos # 0.0 K/mm3 (0.0-0.4) 08/23/17 19:40 Baso # 0.0 K/mm3 (0.0-0.1) 08/23/17 19:40 Add Manual Diff Complete 08/25/17 06:39 Total Counted 100 08/25/17 06:39 Seg Neutrophils % Marketing Editor 08/25/17 06:39 Seg Neuts % (Manual) 85.0 % (40.0-70.0) H 08/25/17 06:39 Band Neutrophils % 8.0 % 08/25/17 06:39 Lymphocytes % (Manual) 4.0 % (13.4-35.0) L 08/25/17 06:39 Reactive Lymphs % (Man) 0 % 08/25/17 06:39 Monocytes % (Manual) 3.0 % (0.0-7.3) 08/25/17 06:39 Eosinophils % (Manual) 0 % (0.0-4.3) 08/25/17 06:39 Basophils % (Manual) 0 % (0.0-1.8) 08/25/17 06:39 Metamyelocytes % 0 % 08/25/17 06:39 Myelocytes % 0 % 08/25/17 06:39 Promyelocytes % 0 % 08/25/17 06:39 Blast Cells % 0 % 08/25/17 06:39 Nucleated RBC % Not Reportable 08/25/17 06:39 Seg Neutrophils # 9.8 K/mm3 (1.8-7.7) H 08/23/17 19:40 Seg Neutrophils # Man 7.6 K/mm3 (1.8-7.7) 08/25/17 06:39 Band Neutrophils # 0.7 K/mm3 08/25/17 06:39 Lymphocytes # (Manual) 0.4 K/mm3 (1.2-5.4) L 08/25/17 06:39 Abs React Lymphs (Man) 0.0 K/mm3 08/25/17 06:39 Monocytes # (Manual) 0.3 K/mm3 (0.0-0.8) 08/25/17 06:39 Eosinophils # (Manual) 0.0 K/mm3 (0.0-0.4) 08/25/17 06:39 Basophils # (Manual) 0.0 K/mm3 (0.0-0.1) 08/25/17 06:39 Metamyelocytes # 0.0 K/mm3 08/25/17 06:39 Myelocytes # 0.0 K/mm3 08/25/17 06:39 Promyelocytes # 0.0 K/mm3 08/25/17 06:39 Blast Cells # 0.0 K/mm3 08/25/17 06:39 WBC Morphology Not Reportable 08/25/17 06:39 Hypersegmented Neuts Not Reportable 08/25/17 06:39 Hyposegmented Neuts Not Reportable 08/25/17 06:39 Hypogranular Neuts Not Reportable 08/25/17 06:39 Smudge Cells Not Reportable 08/25/17 06:39 Toxic Granulation Not Reportable 08/25/17 06:39 Toxic Vacuolation Not Reportable 08/25/17 06:39 Dohle Bodies Not Reportable 08/25/17 06:39 [place] Anomaly Not Reportable 08/25/17 06:39 Marcela Rods Not Reportable 08/25/17 06:39 Platelet Estimate Appears normal 08/25/17 06:39 Clumped Platelets Not Reportable 08/25/17 06:39 Plt Clumps, EDTA Not Reportable 08/25/17 06:39 Large Platelets Few 08/25/17 06:39 Giant Platelets Not Reportable 08/25/17 06:39 Platelet Satelliting Not Reportable 08/25/17 06:39 Plt Morphology Comment Not Reportable 08/25/17 06:39 RBC Morphology Not Reportable 08/25/17 06:39 Dimorphic RBCs Not Reportable 08/25/17 06:39 Polychromasia Not Reportable 08/25/17 06:39 Hypochromasia Few 08/25/17 06:39 Poikilocytosis Not Reportable 08/25/17 06:39 Anisocytosis 1+ 08/25/17 06:39 Microcytosis Not Reportable 08/25/17 06:39 Macrocytosis Not Reportable 08/25/17 06:39 Spherocytes Not Reportable 08/25/17 06:39 Pappenheimer Bodies Not Reportable 08/25/17 06:39 Sickle Cells Not Reportable 08/25/17 06:39 Target Cells Not Reportable 08/25/17 06:39 Tear Drop Cells Not Reportable 08/25/17 06:39 Ovalocytes Not Reportable 08/25/17 06:39 Helmet Cells Not Reportable 08/25/17 06:39 [place] Bodies Not Reportable 08/25/17 06:39 [place] Rings Not Reportable 08/25/17 06:39 [place] Cells Not Reportable 08/25/17 06:39 Bite Cells Not Reportable 08/25/17 06:39 Crenated Cell Not Reportable 08/25/17 06:39 Elliptocytes Not Reportable 08/25/17 06:39 Acanthocytes (Spur) Not Reportable 08/25/17 06:39 Rouleaux Not Reportable 08/25/17 06:39 Hemoglobin C Crystals Not Reportable 08/25/17 06:39 Schistocytes Not Reportable 08/25/17 06:39 Malaria parasites Not Reportable 08/25/17 06:39 [place] Bodies Not Reportable 08/25/17 06:39 Hem Pathologist Commnt No 08/25/17 06:39 PT 13.4 Sec. (12.2-14.9) 08/23/17 19:40 INR 0.97 (0.87-1.13) 08/23/17 19:40 D-Dimer 1979.54 ng/mlDDU (0-234) H 08/23/17 22:20 VBG pH 7.367 (7.320-7.420) 08/23/17 19:47 Sodium 139 mmol/L (137-145) 08/26/17 07:43 Potassium 4.5 mmol/L (3.6-5.0) 08/26/17 07:43 Chloride 104.6 mmol/L (98-107) 08/26/17 07:43 Carbon Dioxide 21 mmol/L (22-30) L 08/26/17 07:43 Anion Gap 18 mmol/L 08/26/17 07:43 BUN 8 mg/dL (7-17) 08/26/17 07:43 Creatinine 0.4 mg/dL (0.7-1.2) L 08/26/17 07:43 Estimated GFR > 60 ml/min 08/26/17 07:43 BUN/Creatinine Ratio 20 % 08/26/17 07:43 Glucose 149 mg/dL (65-100) H 08/26/17 07:43 Lactic Acid 0.70 mmol/L (0.7-2.0) 08/23/17 22:34 Calcium 8.5 mg/dL (8.4-10.2) 08/26/17 07:43 Total Bilirubin 0.30 mg/dL (0.1-1.2) 08/23/17 19:40 AST 31 units/L (5-40) 08/23/17 19:40 ALT 8 units/L (7-56) 08/23/17 19:40 Alkaline Phosphatase 54 units/L (35-129) 08/23/17 19:40 Total Protein 8.1 g/dL (6.3-8.2) 08/23/17 19:40 Albumin 3.0 g/dL (3.9-5) L 08/23/17 19:40 Albumin/Globulin Ratio 0.6 % 08/23/17 19:40 HCG, Qual Negative (Negative) 08/23/17 19:40 Urine Color Yellow (Yellow) 08/23/17 21:35 Urine Turbidity Clear (Clear) 08/23/17 21:35 Urine pH 7.0 (5.0-7.0) 08/23/17 21:35 Ur Specific [place] 1.015 (1.003-1.030) 08/23/17 21:35 Urine Protein <15 mg/dl mg/dL (Negative) 08/23/17 21:35 Urine Glucose (UA) Neg mg/dL (Negative) 08/23/17 21:35 Urine Ketones Neg mg/dL (Negative) 08/23/17 21:35 Urine Blood Neg (Negative) 08/23/17 21:35 Urine Nitrite Neg (Negative) 08/23/17 21:35 Urine Bilirubin Neg (Negative) 08/23/17 21:35 Urine Urobilinogen < 2.0 mg/dL (<2.0) 08/23/17 21:35 Ur Leukocyte Esterase Neg (Negative) 08/23/17 21:35 Urine WBC (Auto) 2.0 /HPF (0.0-6.0) 08/23/17 21:35 Urine RBC (Auto) 6.0 /HPF (0.0-6.0) 08/23/17 21:35 U Epithel Cells (Auto) 6.0 /HPF (0-13.0) 08/23/17 21:35 Urine Bacteria (Auto) 1+ /HPF (Negative) 08/23/17 21:35 Urine Mucus Few /HPF 08/23/17 21:35 RPR Nonreactive (Nonreactive) 08/25/17 16:12 Hepatitis A IgM Ab Non-reactive (NonReactive) 08/25/17 16:04 Hep Bs Antigen Non-reactive (Negative) 08/25/17 16:04 Hep B Core IgM Ab Non-reactive (NonReactive) 08/25/17 16:04 Hepatitis C Antibody Non-reactive (NonReactive) 08/25/17 16:04 HIV 1&2 Antibody Rapid Reactive (Non React) 08/25/17 09:00 HIV P24 Antigen Non react (Non React) 08/25/17 09:00 Influenza A (Rapid) Negative (Negative) 08/23/17 21:35 Influenza B (Rapid) Negative (Negative) 08/23/17 21:35
[2017-08-27] MEDS: TESSALON PERLES PO SCH ×4 (00:19→19:45)
[2017-08-27] MEDS: ROBITUSSIN AC PO PRN ×5 (02:14→19:45)
[2017-08-27] MEDS: NACL 0.9% 1000 ML 1,000 ML IV SCH ×4 (02:15→22:22)
[2017-08-27] MEDS: BACTRIM DS PO SCH ×3 (06:23→22:21)
[2017-08-27] MEDS: DUONEB *Not for PRN Use IH SCH ×3 (08:14→20:58)
[2017-08-27 08:35] LABS: Hematocrit 27.6 % (30.3-42.9); Hemoglobin 9.1 gm/dl (10.1-14.3); Mean Corpuscular HGB Conc 33 % (30-34); Mean Corpuscular Hemoglobin 27 pg (28-32); Mean Corpuscular Volume 82 fl (79-97); Platelet Count 346 K/mm3 (140-440); Red Blood Count 3.35 M/mm3 (3.65-5.03); Red Cell Distribution Width 14.1 % (13.2-15.2)
[2017-08-27 08:59] LABS: BUN/Creatinine Ratio 16; Blood Urea Nitrogen 8 mg/dL (7-17); Calcium 8.5 mg/dL (8.4-10.2); Hemolysis Index 8
[2017-08-27] MEDS: LEVAQUIN 750MG/150ML 750 MG/150 ML BAG IV SCH (10:26)
[2017-08-27] MEDS: PROTONIX PO SCH (10:28)
[2017-08-27] MEDS: HEPARIN SUB-Q SCH ×2 (10:28→22:19)
[2017-08-27] MEDS: DIFLUCAN PO SCH (10:28)
[2017-08-27] MEDS: DELTASONE PO SCH ×2 (10:30→22:20)
--- NOTE | 2017-08-27 17:14 | Progress Note ---
Assessment and Plan Assessment and plan: Patient is 27-year-old woman with a history of asthma who presents with shortness of breath, pulse ox 86%. Patient denies having HIV. -Acute hypoxia respiratory failure: Treated with oxygen -Bilateral pneumonia: Treated with IV antibiotics, discussed with the possible PCP, added Bactrim and IV steroids -Oral Thrush: Consulted ID, ordered Diflucan -Severe cough: Added promethazine for cough at night and Robitussin-AC -newly diagnosis HIV with suspected PCP aka PJP pneumonia Dispositon: once afebrile >24 hours then discharge home, need O2 setup on Tuesday History Interval history: Patient was seen and examined. Follow-up on current diagnosis of fever which is present. Overnight uneventful. Patient denies any chest pain, shortness breath, nausea/vomiting or severe headaches. Imaging, nursing note, chart, labs and old chart reviewed. Discussed with patient. Mother bedside. Patient main complaint is cough, robitussion, Tessalon Perles not helping. She says promethazine helps. Hospitalist Physical - Physical exam Narrative exam: GEN: Thin frail ill-appearing, NAD, AWAKE, ALERT, ORIENTATED 3 HEENT: NCAT, EOMI, PERRL, OP whitish plaques NECK: supple, no adenopathy, no thyromegaly, no JVD CVS/HEART: RRR, NORMAL S1S2, pulses present bilaterally CHEST/LUNGS: Bibasilar crackles with coarse breath sounds bilaterally Symmetrical chest expansion, diminished air entry bilaterally GI/Abdomen: soft, NTND, good bowel sounds, no guarding or rebound /Bladder: no suprapubic tenderness, no CVA or paraspinal tenderness EXT/Skin: no c/c/e, no obvious rash MSK: FROM x 4 Neuro: CN 2-12 grossly intact, no new focal deficits Psych: Anxious - Constitutional Vitals: Temp Pulse Resp BP Pulse Ox 98.4 F 104 H 22 115/77 95 08/27/17 04:31 08/27/17 15:08 08/27/17 15:08 08/27/17 04:31 08/27/17 08:17 Results - Labs CBC & Chem 7: 08/27/17 08:03 08/27/17 08:03 Labs: Laboratory Last Values WBC 15.8 K/mm3 (4.5-11.0) H 08/27/17 08:03 RBC 3.35 M/mm3 (3.65-5.03) L 08/27/17 08:03 Hgb 9.1 gm/dl (10.1-14.3) L 08/27/17 08:03 Hct 27.6 % (30.3-42.9) L 08/27/17 08:03 MCV 82 fl (79-97) 08/27/17 08:03 MCH 27 pg (28-32) L 08/27/17 08:03 MCHC 33 % (30-34) 08/27/17 08:03 RDW 14.1 % (13.2-15.2) 08/27/17 08:03 Plt Count 346 K/mm3 (140-440) 08/27/17 08:03 Lymph % (Auto) 6.4 % (13.4-35.0) L 08/23/17 19:40 Thomas % (Auto) 3.1 % (0.0-7.3) 08/23/17 19:40 Eos % (Auto) 0.4 % (0.0-4.3) 08/23/17 19:40 Baso % (Auto) 0.4 % (0.0-1.8) 08/23/17 19:40 Lymph # 0.7 K/mm3 (1.2-5.4) L 08/23/17 19:40 Thomas # 0.3 K/mm3 (0.0-0.8) 08/23/17 19:40 Eos # 0.0 K/mm3 (0.0-0.4) 08/23/17 19:40 Baso # 0.0 K/mm3 (0.0-0.1) 08/23/17 19:40 Add Manual Diff Complete 08/25/17 06:39 Total Counted 100 08/25/17 06:39 Seg Neutrophils % Passenger Vessel [employer] 08/25/17 06:39 Seg Neuts % (Manual) 85.0 % (40.0-70.0) H 08/25/17 06:39 Band Neutrophils % 8.0 % 08/25/17 06:39 Lymphocytes % (Manual) 4.0 % (13.4-35.0) L 08/25/17 06:39 Reactive Lymphs % (Man) 0 % 08/25/17 06:39 Monocytes % (Manual) 3.0 % (0.0-7.3) 08/25/17 06:39 Eosinophils % (Manual) 0 % (0.0-4.3) 08/25/17 06:39 Basophils % (Manual) 0 % (0.0-1.8) 08/25/17 06:39 Metamyelocytes % 0 % 08/25/17 06:39 Myelocytes % 0 % 08/25/17 06:39 Promyelocytes % 0 % 08/25/17 06:39 Blast Cells % 0 % 08/25/17 06:39 Nucleated RBC % Not Reportable 08/25/17 06:39 Seg Neutrophils # 9.8 K/mm3 (1.8-7.7) H 08/23/17 19:40 Seg Neutrophils # Man 7.6 K/mm3 (1.8-7.7) 08/25/17 06:39 Band Neutrophils # 0.7 K/mm3 08/25/17 06:39 Lymphocytes # (Manual) 0.4 K/mm3 (1.2-5.4) L 08/25/17 06:39 Abs React Lymphs (Man) 0.0 K/mm3 08/25/17 06:39 Monocytes # (Manual) 0.3 K/mm3 (0.0-0.8) 08/25/17 06:39 Eosinophils # (Manual) 0.0 K/mm3 (0.0-0.4) 08/25/17 06:39 Basophils # (Manual) 0.0 K/mm3 (0.0-0.1) 08/25/17 06:39 Metamyelocytes # 0.0 K/mm3 08/25/17 06:39 Myelocytes # 0.0 K/mm3 08/25/17 06:39 Promyelocytes # 0.0 K/mm3 08/25/17 06:39 Blast Cells # 0.0 K/mm3 08/25/17 06:39 WBC Morphology Not Reportable 08/25/17 06:39 Hypersegmented Neuts Not Reportable 08/25/17 06:39 Hyposegmented Neuts Not Reportable 08/25/17 06:39 Hypogranular Neuts Not Reportable 08/25/17 06:39 Smudge Cells Not Reportable 08/25/17 06:39 Toxic Granulation Not Reportable 08/25/17 06:39 Toxic Vacuolation Not Reportable 08/25/17 06:39 Dohle Bodies Not Reportable 08/25/17 06:39 Pelger-Huet Anomaly Not Reportable 08/25/17 06:39 Marcela Rods Not Reportable 08/25/17 06:39 Platelet Estimate Appears normal 08/25/17 06:39 Clumped Platelets Not Reportable 08/25/17 06:39 Plt Clumps, EDTA Not Reportable 08/25/17 06:39 Large Platelets Few 08/25/17 06:39 Giant Platelets Not Reportable 08/25/17 06:39 Platelet Satelliting Not Reportable 08/25/17 06:39 Plt Morphology Comment Not Reportable 08/25/17 06:39 RBC Morphology Not Reportable 08/25/17 06:39 Dimorphic RBCs Not Reportable 08/25/17 06:39 Polychromasia Not Reportable 08/25/17 06:39 Hypochromasia Few 08/25/17 06:39 Poikilocytosis Not Reportable 08/25/17 06:39 Anisocytosis 1+ 08/25/17 06:39 Microcytosis Not Reportable 08/25/17 06:39 Macrocytosis Not Reportable 08/25/17 06:39 Spherocytes Not Reportable 08/25/17 06:39 Pappenheimer Bodies Not Reportable 08/25/17 06:39 Sickle Cells Not Reportable 08/25/17 06:39 Target Cells Not Reportable 08/25/17 06:39 Tear Drop Cells Not Reportable 08/25/17 06:39 Ovalocytes Not Reportable 08/25/17 06:39 Helmet Cells Not Reportable 08/25/17 06:39 Daily-[place] Bodies Not Reportable 08/25/17 06:39 [place] Rings Not Reportable 08/25/17 06:39 [place] Cells Not Reportable 08/25/17 06:39 Bite Cells Not Reportable 08/25/17 06:39 Crenated Cell Not Reportable 08/25/17 06:39 Elliptocytes Not Reportable 08/25/17 06:39 Acanthocytes (Spur) Not Reportable 08/25/17 06:39 Rouleaux Not Reportable 08/25/17 06:39 Hemoglobin C Crystals Not Reportable 08/25/17 06:39 Schistocytes Not Reportable 08/25/17 06:39 Malaria parasites Not Reportable 08/25/17 06:39 [place] Bodies Not Reportable 08/25/17 06:39 Hem Pathologist Commnt No 08/25/17 06:39 PT 13.4 Sec. (12.2-14.9) 08/23/17 19:40 INR 0.97 (0.87-1.13) 08/23/17 19:40 D-Dimer 1979.54 ng/mlDDU (0-234) H 08/23/17 22:20 VBG pH 7.367 (7.320-7.420) 08/23/17 19:47 Sodium 139 mmol/L (137-145) 08/27/17 08:03 Potassium 3.9 mmol/L (3.6-5.0) 08/27/17 08:03 Chloride 106.6 mmol/L (98-107) 08/27/17 08:03 Carbon Dioxide 18 mmol/L (22-30) L 08/27/17 08:03 Anion Gap 18 mmol/L 08/27/17 08:03 BUN 8 mg/dL (7-17) 08/27/17 08:03 Creatinine 0.5 mg/dL (0.7-1.2) L 08/27/17 08:03 Estimated GFR > 60 ml/min 08/27/17 08:03 BUN/Creatinine Ratio 16 % 08/27/17 08:03 Glucose 96 mg/dL (65-100) 08/27/17 08:03 Lactic Acid 0.70 mmol/L (0.7-2.0) 08/23/17 22:34 Calcium 8.5 mg/dL (8.4-10.2) 08/27/17 08:03 Total Bilirubin 0.30 mg/dL (0.1-1.2) 08/23/17 19:40 AST 31 units/L (5-40) 08/23/17 19:40 ALT 8 units/L (7-56) 08/23/17 19:40 Alkaline Phosphatase 54 units/L (35-129) 08/23/17 19:40 Total Protein 8.1 g/dL (6.3-8.2) 08/23/17 19:40 Albumin 3.0 g/dL (3.9-5) L 08/23/17 19:40 Albumin/Globulin Ratio 0.6 % 08/23/17 19:40 HCG, Qual Negative (Negative) 08/23/17 19:40 Urine Color Yellow (Yellow) 08/23/17 21:35 Urine Turbidity Clear (Clear) 08/23/17 21:35 Urine pH 7.0 (5.0-7.0) 08/23/17 21:35 Ur Specific [place] 1.015 (1.003-1.030) 08/23/17 21:35 Urine Protein <15 mg/dl mg/dL (Negative) 08/23/17 21:35 Urine Glucose (UA) Neg mg/dL (Negative) 08/23/17 21:35 Urine Ketones Neg mg/dL (Negative) 08/23/17 21:35 Urine Blood Neg (Negative) 08/23/17 21:35 Urine Nitrite Neg (Negative) 08/23/17 21:35 Urine Bilirubin Neg (Negative) 08/23/17 21:35 Urine Urobilinogen < 2.0 mg/dL (<2.0) 08/23/17 21:35 Ur Leukocyte Esterase Neg (Negative) 08/23/17 21:35 Urine WBC (Auto) 2.0 /HPF (0.0-6.0) 08/23/17 21:35 Urine RBC (Auto) 6.0 /HPF (0.0-6.0) 08/23/17 21:35 U Epithel Cells (Auto) 6.0 /HPF (0-13.0) 08/23/17 21:35 Urine Bacteria (Auto) 1+ /HPF (Negative) 08/23/17 21:35 Urine Mucus Few /HPF 08/23/17 21:35 RPR Nonreactive (Nonreactive) 08/25/17 16:12 Hepatitis A IgM Ab Non-reactive (NonReactive) 08/25/17 16:04 Hep Bs Antigen Non-reactive (Negative) 08/25/17 16:04 Hep B Core IgM Ab Non-reactive (NonReactive) 08/25/17 16:04 Hepatitis C Antibody Non-reactive (NonReactive) 08/25/17 16:04 HIV 1&2 Antibody Rapid Reactive (Non React) 08/25/17 09:00 HIV P24 Antigen Non react (Non React) 03/29/18 09:00 Influenza A (Rapid) Negative (Negative) 08/23/17 21:35 Influenza B (Rapid) Negative (Negative) 08/23/17 21:35
[2017-08-27 22:07] LABS: HIV-1 RNA QN PCR 5.41 Log cps/mL
[2017-08-27] MEDS: TYLENOL PO PRN (22:21)
[2017-08-28] MEDS: TESSALON PERLES PO SCH ×6 (00:55→23:49)
[2017-08-28] MEDS: ROBITUSSIN AC PO PRN ×6 (00:56→23:49)
[2017-08-28] MEDS: BACTRIM DS PO SCH ×3 (05:03→22:04)
[2017-08-28] MEDS: NACL 0.9% 1000 ML 1,000 ML IV SCH ×3 (05:04→15:45)
[2017-08-28 07:10] LABS: Hematocrit 25.6 % (30.3-42.9); Hemoglobin 8.6 gm/dl (10.1-14.3); Mean Corpuscular HGB Conc 34 % (30-34); Mean Corpuscular Hemoglobin 27 pg (28-32); Mean Corpuscular Volume 81 fl (79-97); Platelet Count 305 K/mm3 (140-440); Red Blood Count 3.14 M/mm3 (3.65-5.03); Red Cell Distribution Width 14.3 % (13.2-15.2)
[2017-08-28 07:28] LABS: BUN/Creatinine Ratio 16; Blood Urea Nitrogen 8 mg/dL (7-17); Calcium 8.5 mg/dL (8.4-10.2); Hemolysis Index 6
[2017-08-28] MEDS: DUONEB *Not for PRN Use IH SCH ×3 (08:25→20:25)
[2017-08-28] MEDS: DELTASONE PO SCH ×2 (10:18→22:05)
[2017-08-28] MEDS: PROTONIX PO SCH (10:18)
[2017-08-28] MEDS: HEPARIN SUB-Q SCH ×2 (10:18→22:05)
[2017-08-28] MEDS: DIFLUCAN PO SCH (10:18)
[2017-08-28] MEDS: LEVAQUIN 750MG/150ML 750 MG/150 ML BAG IV SCH (10:19)
--- NOTE | 2017-08-28 15:23 | Progress Note ---
Assessment and Plan Assessment and plan: Patient is 27-year-old woman with a history of asthma who presents with shortness of breath, pulse ox 86%. Patient denies having HIV. -Acute hypoxia respiratory failure: Treated with oxygen -Bilateral pneumonia: Treated with IV antibiotics, discussed with the possible PCP, added Bactrim and IV steroids -Oral Thrush: Consulted ID, ordered Diflucan -Severe cough: Added promethazine for cough at night and Robitussin-AC -newly diagnosis HIV with suspected PCP aka PJP pneumonia Dispositon: once afebrile >24 hours then discharge home, need O2 setup on Tuesday History Interval history: Patient was seen and examined. Follow-up on current diagnosis of fever which is present. Overnight uneventful. Patient denies any chest pain, shortness breath, nausea/vomiting or severe headaches. Imaging, nursing note, chart, labs and old chart reviewed. Discussed with patient. Mother bedside. Patient main complaint is cough, robitussion, Tessalon Perles not helping. She says promethazine helps. Hospitalist Physical - Physical exam Narrative exam: GEN: Thin frail ill-appearing, NAD, AWAKE, ALERT, ORIENTATED 3 HEENT: NCAT, EOMI, PERRL, OP whitish plaques NECK: supple, no adenopathy, no thyromegaly, no JVD CVS/HEART: RRR, NORMAL S1S2, pulses present bilaterally CHEST/LUNGS: Bibasilar crackles with coarse breath sounds bilaterally Symmetrical chest expansion, diminished air entry bilaterally GI/Abdomen: soft, NTND, good bowel sounds, no guarding or rebound /Bladder: no suprapubic tenderness, no CVA or paraspinal tenderness EXT/Skin: no c/c/e, no obvious rash MSK: FROM x 4 Neuro: CN 2-12 grossly intact, no new focal deficits Psych: Anxious - Constitutional Vitals: Temp Pulse Resp BP Pulse Ox 98.6 F 84 16 103/61 94 08/28/17 14:05 08/28/17 14:05 08/28/17 09:19 08/28/17 14:05 08/28/17 09:19 Results - Labs CBC & Chem 7: 08/28/17 06:45 08/28/17 06:45 Labs: Laboratory Last Values WBC 13.8 K/mm3 (4.5-11.0) H 08/28/17 06:45 RBC 3.14 M/mm3 (3.65-5.03) L 08/28/17 06:45 Hgb 8.6 gm/dl (10.1-14.3) L 08/28/17 06:45 Hct 25.6 % (30.3-42.9) L 08/28/17 06:45 MCV 81 fl (79-97) 08/28/17 06:45 MCH 27 pg (28-32) L 08/28/17 06:45 MCHC 34 % (30-34) 08/28/17 06:45 RDW 14.3 % (13.2-15.2) 08/28/17 06:45 Plt Count 305 K/mm3 (140-440) 08/28/17 06:45 Lymph % (Auto) 6.4 % (13.4-35.0) L 08/23/17 19:40 [place] % (Auto) 3.1 % (0.0-7.3) 08/23/17 19:40 Eos % (Auto) 0.4 % (0.0-4.3) 08/23/17 19:40 Baso % (Auto) 0.4 % (0.0-1.8) 08/23/17 19:40 Lymph # 0.7 K/mm3 (1.2-5.4) L 08/23/17 19:40 [place] # 0.3 K/mm3 (0.0-0.8) 08/23/17 19:40 Eos # 0.0 K/mm3 (0.0-0.4) 08/23/17 19:40 Baso # 0.0 K/mm3 (0.0-0.1) 08/23/17 19:40 Add Manual Diff Complete 08/25/17 06:39 Total Counted 100 08/25/17 06:39 Seg Neutrophils % Pump Operator Byproducts 08/25/17 06:39 Seg Neuts % (Manual) 85.0 % (40.0-70.0) H 08/25/17 06:39 Band Neutrophils % 8.0 % 08/25/17 06:39 Lymphocytes % (Manual) 4.0 % (13.4-35.0) L 08/25/17 06:39 Reactive Lymphs % (Man) 0 % 08/25/17 06:39 Monocytes % (Manual) 3.0 % (0.0-7.3) 08/25/17 06:39 Eosinophils % (Manual) 0 % (0.0-4.3) 08/25/17 06:39 Basophils % (Manual) 0 % (0.0-1.8) 08/25/17 06:39 Metamyelocytes % 0 % 08/25/17 06:39 Myelocytes % 0 % 08/25/17 06:39 Promyelocytes % 0 % 08/25/17 06:39 Blast Cells % 0 % 08/25/17 06:39 Nucleated RBC % Not Reportable 08/25/17 06:39 Seg Neutrophils # 9.8 K/mm3 (1.8-7.7) H 08/23/17 19:40 Seg Neutrophils # Man 7.6 K/mm3 (1.8-7.7) 08/25/17 06:39 Band Neutrophils # 0.7 K/mm3 08/25/17 06:39 Lymphocytes # (Manual) 0.4 K/mm3 (1.2-5.4) L 08/25/17 06:39 Abs React Lymphs (Man) 0.0 K/mm3 08/25/17 06:39 Monocytes # (Manual) 0.3 K/mm3 (0.0-0.8) 08/25/17 06:39 Eosinophils # (Manual) 0.0 K/mm3 (0.0-0.4) 08/25/17 06:39 Basophils # (Manual) 0.0 K/mm3 (0.0-0.1) 08/25/17 06:39 Metamyelocytes # 0.0 K/mm3 08/25/17 06:39 Myelocytes # 0.0 K/mm3 08/25/17 06:39 Promyelocytes # 0.0 K/mm3 08/25/17 06:39 Blast Cells # 0.0 K/mm3 08/25/17 06:39 WBC Morphology Not Reportable 08/25/17 06:39 Hypersegmented Neuts Not Reportable 08/25/17 06:39 Hyposegmented Neuts Not Reportable 08/25/17 06:39 Hypogranular Neuts Not Reportable 08/25/17 06:39 Smudge Cells Not Reportable 08/25/17 06:39 Toxic Granulation Not Reportable 08/25/17 06:39 Toxic Vacuolation Not Reportable 08/25/17 06:39 Dohle Bodies Not Reportable 08/25/17 06:39 Pelger-Huet Anomaly Not Reportable 08/25/17 06:39 Marcela Rods Not Reportable 08/25/17 06:39 Platelet Estimate Appears normal 08/25/17 06:39 Clumped Platelets Not Reportable 08/25/17 06:39 Plt Clumps, EDTA Not Reportable 08/25/17 06:39 Large Platelets Few 08/25/17 06:39 Giant Platelets Not Reportable 08/25/17 06:39 Platelet Satelliting Not Reportable 08/25/17 06:39 Plt Morphology Comment Not Reportable 08/25/17 06:39 RBC Morphology Not Reportable 08/25/17 06:39 Dimorphic RBCs Not Reportable 08/25/17 06:39 Polychromasia Not Reportable 08/25/17 06:39 Hypochromasia Few 08/25/17 06:39 Poikilocytosis Not Reportable 08/25/17 06:39 Anisocytosis 1+ 08/25/17 06:39 Microcytosis Not Reportable 08/25/17 06:39 Macrocytosis Not Reportable 08/25/17 06:39 Spherocytes Not Reportable 08/25/17 06:39 Pappenheimer Bodies Not Reportable 08/25/17 06:39 Sickle Cells Not Reportable 08/25/17 06:39 Target Cells Not Reportable 08/25/17 06:39 Tear Drop Cells Not Reportable 08/25/17 06:39 Ovalocytes Not Reportable 08/25/17 06:39 Helmet Cells Not Reportable 08/25/17 06:39 Daily-[place] Bodies Not Reportable 08/25/17 06:39 [place] Rings Not Reportable 08/25/17 06:39 [place] Cells Not Reportable 08/25/17 06:39 Bite Cells Not Reportable 08/25/17 06:39 Crenated Cell Not Reportable 08/25/17 06:39 Elliptocytes Not Reportable 08/25/17 06:39 Acanthocytes (Spur) Not Reportable 08/25/17 06:39 Rouleaux Not Reportable 08/25/17 06:39 Hemoglobin C Crystals Not Reportable 08/25/17 06:39 Schistocytes Not Reportable 08/25/17 06:39 Malaria parasites Not Reportable 08/25/17 06:39 [place] Bodies Not Reportable 08/25/17 06:39 Hem Pathologist Commnt No 08/25/17 06:39 PT 13.4 Sec. (12.2-14.9) 08/23/17 19:40 INR 0.97 (0.87-1.13) 08/23/17 19:40 D-Dimer 1979.54 ng/mlDDU (0-234) H 08/23/17 22:20 VBG pH 7.367 (7.320-7.420) 08/23/17 19:47 Sodium 137 mmol/L (137-145) 08/28/17 06:45 Potassium 4.5 mmol/L (3.6-5.0) 08/28/17 06:45 Chloride 105.1 mmol/L (98-107) 08/28/17 06:45 Carbon Dioxide 19 mmol/L (22-30) L 08/28/17 06:45 Anion Gap 17 mmol/L 08/28/17 06:45 BUN 8 mg/dL (7-17) 08/28/17 06:45 Creatinine 0.5 mg/dL (0.7-1.2) L 08/28/17 06:45 Estimated GFR > 60 ml/min 08/28/17 06:45 BUN/Creatinine Ratio 16 % 08/28/17 06:45 Glucose 93 mg/dL (65-100) 08/28/17 06:45 Lactic Acid 0.70 mmol/L (0.7-2.0) 08/23/17 22:34 Calcium 8.5 mg/dL (8.4-10.2) 08/28/17 06:45 Total Bilirubin 0.30 mg/dL (0.1-1.2) 08/23/17 19:40 AST 31 units/L (5-40) 08/23/17 19:40 ALT 8 units/L (7-56) 08/23/17 19:40 Alkaline Phosphatase 54 units/L (35-129) 08/23/17 19:40 Total Protein 8.1 g/dL (6.3-8.2) 08/23/17 19:40 Albumin 3.0 g/dL (3.9-5) L 08/23/17 19:40 Albumin/Globulin Ratio 0.6 % 08/23/17 19:40 HCG, Qual Negative (Negative) 08/23/17 19:40 Urine Color Yellow (Yellow) 08/23/17 21:35 Urine Turbidity Clear (Clear) 08/23/17 21:35 Urine pH 7.0 (5.0-7.0) 08/23/17 21:35 Ur Specific [place] 1.015 (1.003-1.030) 08/23/17 21:35 Urine Protein <15 mg/dl mg/dL (Negative) 08/23/17 21:35 Urine Glucose (UA) Neg mg/dL (Negative) 08/23/17 21:35 Urine Ketones Neg mg/dL (Negative) 08/23/17 21:35 Urine Blood Neg (Negative) 08/23/17 21:35 Urine Nitrite Neg (Negative) 08/23/17 21:35 Urine Bilirubin Neg (Negative) 08/23/17 21:35 Urine Urobilinogen < 2.0 mg/dL (<2.0) 08/23/17 21:35 Ur Leukocyte Esterase Neg (Negative) 08/23/17 21:35 Urine WBC (Auto) 2.0 /HPF (0.0-6.0) 08/23/17 21:35 Urine RBC (Auto) 6.0 /HPF (0.0-6.0) 08/23/17 21:35 U Epithel Cells (Auto) 6.0 /HPF (0-13.0) 08/23/17 21:35 Urine Bacteria (Auto) 1+ /HPF (Negative) 08/23/17 21:35 Urine Mucus Few /HPF 08/23/17 21:35 RPR Nonreactive (Nonreactive) 08/25/17 16:12 Hepatitis A IgM Ab Non-reactive (NonReactive) 08/25/17 16:04 Hep Bs Antigen Non-reactive (Negative) 08/25/17 16:04 Hep B Core IgM Ab Non-reactive (NonReactive) 08/25/17 16:04 Hepatitis C Antibody Non-reactive (NonReactive) 08/25/17 16:04 HIV-1 RNA PCR copies/ml [id number] Copies/mL H 08/25/17 16:11 HIV-1 RNA (PCR) log 5.41 Log cps/mL H 08/25/17 16:11 HIV 1&2 Antibody Rapid Reactive (Non React) 08/25/17 09:00 HIV P24 Antigen Non react (Non React) 08/25/17 09:00 Influenza A (Rapid) Negative (Negative) 08/23/17 21:35 Influenza B (Rapid) Negative (Negative) 08/23/17 21:35
[2017-08-29] MEDS: ROBITUSSIN AC PO PRN ×4 (04:01→21:22)
[2017-08-29] MEDS: NACL 0.9% 1000 ML 1,000 ML IV SCH ×2 (04:01→17:44)
[2017-08-29] MEDS: TESSALON PERLES PO SCH ×3 (06:34→17:41)
[2017-08-29] MEDS: BACTRIM DS PO SCH ×3 (06:34→21:19)
[2017-08-29] MEDS: DUONEB *Not for PRN Use IH SCH ×3 (07:41→19:20)
[2017-08-29] MEDS: LEVAQUIN 750MG/150ML 750 MG/150 ML BAG IV SCH (11:28)
[2017-08-29] MEDS: DIFLUCAN PO SCH (11:29)
[2017-08-29] MEDS: HEPARIN SUB-Q SCH ×2 (11:30→21:19)
[2017-08-29] MEDS: DELTASONE PO SCH ×2 (11:30→21:19)
[2017-08-29] MEDS: PROTONIX PO SCH (11:31)
--- NOTE | 2017-08-29 13:21 | Progress Note ---
Assessment and Plan Assessment and plan: Patient is 27-year-old woman with a history of asthma who presents with shortness of breath, pulse ox 86%. Patient denies having a history of HIV. -Acute hypoxia respiratory failure: Treated with oxygen -Bilateral pneumonia: Treated with IV antibiotics, discussed with the possible PCP, added Bactrim and IV steroids -Oral Thrush: Consulted ID, ordered Diflucan and ordered HIV testing -Severe cough: Added promethazine for cough at night and Robitussin-AC -newly diagnosis HIV with suspected PCP aka PJP pneumonia Dispositon: once afebrile >24 hours then discharge home, need O2 setup on Tuesday Fever returned and she still is hypoxic, ID is back tomorrow. Continue to follow cultures and test results History Interval history: Patient was seen and examined. Follow-up on current diagnosis of fever which is present. Overnight uneventful. Patient denies any chest pain, shortness breath, nausea/vomiting or severe headaches. Imaging, nursing note, chart, labs and old chart reviewed. Discussed with patient. Mother bedside. Patient main complaint is cough, robitussion, Tessalon Perles not helping. She says promethazine helps. Hospitalist Physical - Physical exam Narrative exam: GEN: Thin frail ill-appearing, NAD, AWAKE, ALERT, ORIENTATED 3 HEENT: NCAT, EOMI, PERRL, OP whitish plaques NECK: supple, no adenopathy, no thyromegaly, no JVD CVS/HEART: RRR, NORMAL S1S2, pulses present bilaterally CHEST/LUNGS: Bibasilar crackles with coarse breath sounds bilaterally Symmetrical chest expansion, diminished air entry bilaterally GI/Abdomen: soft, NTND, good bowel sounds, no guarding or rebound /Bladder: no suprapubic tenderness, no CVA or paraspinal tenderness EXT/Skin: no c/c/e, no obvious rash MSK: FROM x 4 Neuro: CN 2-12 grossly intact, no new focal deficits Psych: Anxious - Constitutional Vitals: Temp Pulse Resp BP Pulse Ox 97.8 F 90 24 109/71 98 08/29/17 08:08 08/29/17 08:08 08/29/17 08:08 08/29/17 08:08 08/29/17 09:48 Results - Labs CBC & Chem 7: 08/28/17 06:45 08/28/17 06:45 Labs: Laboratory Last Values WBC 13.8 K/mm3 (4.5-11.0) H 08/28/17 06:45 RBC 3.14 M/mm3 (3.65-5.03) L 08/28/17 06:45 Hgb 8.6 gm/dl (10.1-14.3) L 08/28/17 06:45 Hct 25.6 % (30.3-42.9) L 08/28/17 06:45 MCV 81 fl (79-97) 08/28/17 06:45 MCH 27 pg (28-32) L 08/28/17 06:45 MCHC 34 % (30-34) 08/28/17 06:45 RDW 14.3 % (13.2-15.2) 08/28/17 06:45 Plt Count 305 K/mm3 (140-440) 08/28/17 06:45 Lymph % (Auto) 6.4 % (13.4-35.0) L 08/23/17 19:40 [place] % (Auto) 3.1 % (0.0-7.3) 08/23/17 19:40 Eos % (Auto) 0.4 % (0.0-4.3) 08/23/17 19:40 Baso % (Auto) 0.4 % (0.0-1.8) 08/23/17 19:40 Lymph # 0.7 K/mm3 (1.2-5.4) L 08/23/17 19:40 [place] # 0.3 K/mm3 (0.0-0.8) 08/23/17 19:40 Eos # 0.0 K/mm3 (0.0-0.4) 08/23/17 19:40 Baso # 0.0 K/mm3 (0.0-0.1) 08/23/17 19:40 Add Manual Diff Complete 08/25/17 06:39 Total Counted 100 08/25/17 06:39 Seg Neutrophils % Family Practice Physician 08/25/17 06:39 Seg Neuts % (Manual) 85.0 % (40.0-70.0) H 08/25/17 06:39 Band Neutrophils % 8.0 % 08/25/17 06:39 Lymphocytes % (Manual) 4.0 % (13.4-35.0) L 08/25/17 06:39 Reactive Lymphs % (Man) 0 % 08/25/17 06:39 Monocytes % (Manual) 3.0 % (0.0-7.3) 08/25/17 06:39 Eosinophils % (Manual) 0 % (0.0-4.3) 08/25/17 06:39 Basophils % (Manual) 0 % (0.0-1.8) 08/25/17 06:39 Metamyelocytes % 0 % 08/25/17 06:39 Myelocytes % 0 % 08/25/17 06:39 Promyelocytes % 0 % 08/25/17 06:39 Blast Cells % 0 % 08/25/17 06:39 Nucleated RBC % Not Reportable 08/25/17 06:39 Seg Neutrophils # 9.8 K/mm3 (1.8-7.7) H 08/23/17 19:40 Seg Neutrophils # Man 7.6 K/mm3 (1.8-7.7) 08/25/17 06:39 Band Neutrophils # 0.7 K/mm3 08/25/17 06:39 Lymphocytes # (Manual) 0.4 K/mm3 (1.2-5.4) L 08/25/17 06:39 Abs React Lymphs (Man) 0.0 K/mm3 08/25/17 06:39 Monocytes # (Manual) 0.3 K/mm3 (0.0-0.8) 08/25/17 06:39 Eosinophils # (Manual) 0.0 K/mm3 (0.0-0.4) 08/25/17 06:39 Basophils # (Manual) 0.0 K/mm3 (0.0-0.1) 08/25/17 06:39 Metamyelocytes # 0.0 K/mm3 08/25/17 06:39 Myelocytes # 0.0 K/mm3 08/25/17 06:39 Promyelocytes # 0.0 K/mm3 08/25/17 06:39 Blast Cells # 0.0 K/mm3 08/25/17 06:39 WBC Morphology Not Reportable 08/25/17 06:39 Hypersegmented Neuts Not Reportable 08/25/17 06:39 Hyposegmented Neuts Not Reportable 08/25/17 06:39 Hypogranular Neuts Not Reportable 08/25/17 06:39 Smudge Cells Not Reportable 08/25/17 06:39 Toxic Granulation Not Reportable 08/25/17 06:39 Toxic Vacuolation Not Reportable 08/25/17 06:39 Dohle Bodies Not Reportable 08/25/17 06:39 Pelger-Huet Anomaly Not Reportable 08/25/17 06:39 Marcela Rods Not Reportable 08/25/17 06:39 Platelet Estimate Appears normal 08/25/17 06:39 Clumped Platelets Not Reportable 08/25/17 06:39 Plt Clumps, EDTA Not Reportable 08/25/17 06:39 Large Platelets Few 08/25/17 06:39 Giant Platelets Not Reportable 08/25/17 06:39 Platelet Satelliting Not Reportable 08/25/17 06:39 Plt Morphology Comment Not Reportable 08/25/17 06:39 RBC Morphology Not Reportable 08/25/17 06:39 Dimorphic RBCs Not Reportable 08/25/17 06:39 Polychromasia Not Reportable 08/25/17 06:39 Hypochromasia Few 08/25/17 06:39 Poikilocytosis Not Reportable 08/25/17 06:39 Anisocytosis 1+ 08/25/17 06:39 Microcytosis Not Reportable 08/25/17 06:39 Macrocytosis Not Reportable 08/25/17 06:39 Spherocytes Not Reportable 08/25/17 06:39 Pappenheimer Bodies Not Reportable 08/25/17 06:39 Sickle Cells Not Reportable 08/25/17 06:39 Target Cells Not Reportable 08/25/17 06:39 Tear Drop Cells Not Reportable 08/25/17 06:39 Ovalocytes Not Reportable 08/25/17 06:39 Helmet Cells Not Reportable 08/25/17 06:39 Daily-[place] Bodies Not Reportable 08/25/17 06:39 [place] Rings Not Reportable 08/25/17 06:39 Arlyn Cells Not Reportable 08/25/17 06:39 Bite Cells Not Reportable 08/25/17 06:39 Crenated Cell Not Reportable 08/25/17 06:39 Elliptocytes Not Reportable 08/25/17 06:39 Acanthocytes (Spur) Not Reportable 08/25/17 06:39 Rouleaux Not Reportable 08/25/17 06:39 Hemoglobin C Crystals Not Reportable 08/25/17 06:39 Schistocytes Not Reportable 08/25/17 06:39 Malaria parasites Not Reportable 08/25/17 06:39 [place] Bodies Not Reportable 08/25/17 06:39 Hem Pathologist Commnt No 08/25/17 06:39 PT 13.4 Sec. (12.2-14.9) 08/23/17 19:40 INR 0.97 (0.87-1.13) 08/23/17 19:40 D-Dimer 1979.54 ng/mlDDU (0-234) H 08/23/17 22:20 VBG pH 7.367 (7.320-7.420) 08/23/17 19:47 Sodium 137 mmol/L (137-145) 08/28/17 06:45 Potassium 4.5 mmol/L (3.6-5.0) 08/28/17 06:45 Chloride 105.1 mmol/L (98-107) 08/28/17 06:45 Carbon Dioxide 19 mmol/L (22-30) L 08/28/17 06:45 Anion Gap 17 mmol/L 08/28/17 06:45 BUN 8 mg/dL (7-17) 08/28/17 06:45 Creatinine 0.5 mg/dL (0.7-1.2) L 08/28/17 06:45 Estimated GFR > 60 ml/min 08/28/17 06:45 BUN/Creatinine Ratio 16 % 08/28/17 06:45 Glucose 93 mg/dL (65-100) 08/28/17 06:45 Lactic Acid 0.70 mmol/L (0.7-2.0) 08/23/17 22:34 Calcium 8.5 mg/dL (8.4-10.2) 08/28/17 06:45 Total Bilirubin 0.30 mg/dL (0.1-1.2) 08/23/17 19:40 AST 31 units/L (5-40) 08/23/17 19:40 ALT 8 units/L (7-56) 08/23/17 19:40 Alkaline Phosphatase 54 units/L (35-129) 08/23/17 19:40 Total Protein 8.1 g/dL (6.3-8.2) 08/23/17 19:40 Albumin 3.0 g/dL (3.9-5) L 08/23/17 19:40 Albumin/Globulin Ratio 0.6 % 08/23/17 19:40 HCG, Qual Negative (Negative) 08/23/17 19:40 Urine Color Yellow (Yellow) 08/23/17 21:35 Urine Turbidity Clear (Clear) 08/23/17 21:35 Urine pH 7.0 (5.0-7.0) 08/23/17 21:35 Ur Specific [place] 1.015 (1.003-1.030) 08/23/17 21:35 Urine Protein <15 mg/dl mg/dL (Negative) 08/23/17 21:35 Urine Glucose (UA) Neg mg/dL (Negative) 08/23/17 21:35 Urine Ketones Neg mg/dL (Negative) 08/23/17 21:35 Urine Blood Neg (Negative) 08/23/17 21:35 Urine Nitrite Neg (Negative) 08/23/17 21:35 Urine Bilirubin Neg (Negative) 08/23/17 21:35 Urine Urobilinogen < 2.0 mg/dL (<2.0) 08/23/17 21:35 Ur Leukocyte Esterase Neg (Negative) 08/23/17 21:35 Urine WBC (Auto) 2.0 /HPF (0.0-6.0) 08/23/17 21:35 Urine RBC (Auto) 6.0 /HPF (0.0-6.0) 08/23/17 21:35 U Epithel Cells (Auto) 6.0 /HPF (0-13.0) 08/23/17 21:35 Urine Bacteria (Auto) 1+ /HPF (Negative) 08/23/17 21:35 Urine Mucus Few /HPF 08/23/17 21:35 RPR Nonreactive (Nonreactive) 08/25/17 16:12 Hepatitis A IgM Ab Non-reactive (NonReactive) 08/25/17 16:04 Hep Bs Antigen Non-reactive (Negative) 08/25/17 16:04 Hep B Core IgM Ab Non-reactive (NonReactive) 08/25/17 16:04 Hepatitis C Antibody Non-reactive (NonReactive) 08/25/17 16:04 HIV-1 RNA PCR copies/ml 255998 Copies/mL H 08/25/17 16:11 HIV-1 RNA (PCR) log 5.41 Log cps/mL H 08/25/17 16:11 HIV 1&2 Antibody Rapid Reactive (Non React) 08/25/17 09:00 HIV P24 Antigen Non react (Non React) 08/25/17 09:00 Influenza A (Rapid) Negative (Negative) 08/23/17 21:35 Influenza B (Rapid) Negative (Negative) 08/23/17 21:35
[2017-08-30] MEDS: ROBITUSSIN AC PO PRN ×4 (02:32→21:45)
[2017-08-30] MEDS: TESSALON PERLES PO SCH ×4 (02:33→18:55)
[2017-08-30 06:21] LABS: Hematocrit 28.3 % (30.3-42.9); Hemoglobin 9.3 gm/dl (10.1-14.3); Mean Corpuscular HGB Conc 33 % (30-34); Mean Corpuscular Hemoglobin 27 pg (28-32); Mean Corpuscular Volume 82 fl (79-97); Platelet Count 335 K/mm3 (140-440); Red Blood Count 3.46 M/mm3 (3.65-5.03); Red Cell Distribution Width 14.7 % (13.2-15.2)
[2017-08-30] MEDS: BACTRIM DS PO SCH ×3 (06:32→21:46)
[2017-08-30 06:56] LABS: BUN/Creatinine Ratio 20; Blood Urea Nitrogen 10 mg/dL (7-17); Calcium 8.1 mg/dL (8.4-10.2); Hemolysis Index 9
[2017-08-30] MEDS: NACL 0.9% 1000 ML 1,000 ML IV SCH (09:15)
[2017-08-30] MEDS: LEVAQUIN 750MG/150ML 750 MG/150 ML BAG IV SCH (09:16)
[2017-08-30] MEDS: HEPARIN SUB-Q SCH ×2 (09:16→21:47)
[2017-08-30] MEDS: PROTONIX PO SCH (09:17)
[2017-08-30] MEDS: DELTASONE PO SCH (09:17)
[2017-08-30] MEDS: DIFLUCAN PO SCH (09:17)
--- NOTE | 2017-08-30 10:35 | Progress Note ---
Assessment and Plan Assessment and plan: -Acute hypoxia respiratory failure: Treated with oxygen. Patient will likely need home O2. Case management to arrange. -Bilateral pneumonia: Treated with IV antibiotics, continue Bactrim and IV steroids. ID consultation. -Oral candidiasis. ID consultation pending, continue Diflucan and follow-up HIV testing -Asthma/chronic bronchitis. Patient with severe cough: Added promethazine for cough at night and Robitussin-AC. -newly diagnosis HIV with suspected PCP/PJP pneumonia History Interval history: No new issues overnight. Patient complains of shortness of breath. Hospitalist Physical - Constitutional Vitals: Temp Pulse Resp BP Pulse Ox 98.5 F 67 18 114/79 95 08/30/17 08:16 08/30/17 08:16 08/30/17 08:16 08/30/17 08:16 08/30/17 01:21 General appearance: Present: no acute distress, well-nourished - EENT Eyes: Present: PERRL, EOM intact ENT: hearing intact, clear oral mucosa, dentition normal - Neck Neck: Present: supple, normal ROM - Respiratory Respiratory effort: normal Respiratory: bilateral: diminished, rhonchi - Cardiovascular Rhythm: regular Heart Sounds: Present: S1 & S2. Absent: gallop, rub - Extremities Extremities: no ischemia, No edema, Full ROM - Abdominal General gastrointestinal: soft, non-tender, non-distended, normal bowel sounds - Integumentary Integumentary: Present: clear, warm, dry - Neurologic Neurologic: CNII-XII intact, moves all extremities Results - Labs CBC & Chem 7: 08/30/17 05:31 08/30/17 05:31 Labs: Laboratory Last Values WBC 12.7 K/mm3 (4.5-11.0) H 08/30/17 05:31 RBC 3.46 M/mm3 (3.65-5.03) L 08/30/17 05:31 Hgb 9.3 gm/dl (10.1-14.3) L 08/30/17 05:31 Hct 28.3 % (30.3-42.9) L 08/30/17 05:31 MCV 82 fl (79-97) 08/30/17 05:31 MCH 27 pg (28-32) L 08/30/17 05:31 MCHC 33 % (30-34) 08/30/17 05:31 RDW 14.7 % (13.2-15.2) 08/30/17 05:31 Plt Count 335 K/mm3 (140-440) 08/30/17 05:31 Lymph % (Auto) 6.4 % (13.4-35.0) L 08/23/17 19:40 [place] % (Auto) 3.1 % (0.0-7.3) 08/23/17 19:40 Eos % (Auto) 0.4 % (0.0-4.3) 08/23/17 19:40 Baso % (Auto) 0.4 % (0.0-1.8) 08/23/17 19:40 Lymph # 0.7 K/mm3 (1.2-5.4) L 08/23/17 19:40 [place] # 0.3 K/mm3 (0.0-0.8) 08/23/17 19:40 Eos # 0.0 K/mm3 (0.0-0.4) 08/23/17 19:40 Baso # 0.0 K/mm3 (0.0-0.1) 08/23/17 19:40 Add Manual Diff Complete 08/25/17 06:39 Total Counted 100 08/25/17 06:39 Seg Neutrophils % Can Dragger 08/25/17 06:39 Seg Neuts % (Manual) 85.0 % (40.0-70.0) H 08/25/17 06:39 Band Neutrophils % 8.0 % 08/25/17 06:39 Lymphocytes % (Manual) 4.0 % (13.4-35.0) L 08/25/17 06:39 Reactive Lymphs % (Man) 0 % 08/25/17 06:39 Monocytes % (Manual) 3.0 % (0.0-7.3) 08/25/17 06:39 Eosinophils % (Manual) 0 % (0.0-4.3) 08/25/17 06:39 Basophils % (Manual) 0 % (0.0-1.8) 08/25/17 06:39 Metamyelocytes % 0 % 08/25/17 06:39 Myelocytes % 0 % 08/25/17 06:39 Promyelocytes % 0 % 08/25/17 06:39 Blast Cells % 0 % 08/25/17 06:39 Nucleated RBC % Not Reportable 08/25/17 06:39 Seg Neutrophils # 9.8 K/mm3 (1.8-7.7) H 08/23/17 19:40 Seg Neutrophils # Man 7.6 K/mm3 (1.8-7.7) 08/25/17 06:39 Band Neutrophils # 0.7 K/mm3 08/25/17 06:39 Lymphocytes # (Manual) 0.4 K/mm3 (1.2-5.4) L 08/25/17 06:39 Abs React Lymphs (Man) 0.0 K/mm3 08/25/17 06:39 Monocytes # (Manual) 0.3 K/mm3 (0.0-0.8) 08/25/17 06:39 Eosinophils # (Manual) 0.0 K/mm3 (0.0-0.4) 08/25/17 06:39 Basophils # (Manual) 0.0 K/mm3 (0.0-0.1) 08/25/17 06:39 Metamyelocytes # 0.0 K/mm3 08/25/17 06:39 Myelocytes # 0.0 K/mm3 08/25/17 06:39 Promyelocytes # 0.0 K/mm3 08/25/17 06:39 Blast Cells # 0.0 K/mm3 08/25/17 06:39 WBC Morphology Not Reportable 08/25/17 06:39 Hypersegmented Neuts Not Reportable 08/25/17 06:39 Hyposegmented Neuts Not Reportable 08/25/17 06:39 Hypogranular Neuts Not Reportable 08/25/17 06:39 Smudge Cells Not Reportable 08/25/17 06:39 Toxic Granulation Not Reportable 08/25/17 06:39 Toxic Vacuolation Not Reportable 08/25/17 06:39 Dohle Bodies Not Reportable 08/25/17 06:39 Pelger-Huet Anomaly Not Reportable 08/25/17 06:39 Marcela Rods Not Reportable 08/25/17 06:39 Platelet Estimate Appears normal 08/25/17 06:39 Clumped Platelets Not Reportable 08/25/17 06:39 Plt Clumps, EDTA Not Reportable 08/25/17 06:39 Large Platelets Few 08/25/17 06:39 Giant Platelets Not Reportable 08/25/17 06:39 Platelet Satelliting Not Reportable 08/25/17 06:39 Plt Morphology Comment Not Reportable 08/25/17 06:39 RBC Morphology Not Reportable 08/25/17 06:39 Dimorphic RBCs Not Reportable 08/25/17 06:39 Polychromasia Not Reportable 08/25/17 06:39 Hypochromasia Few 08/25/17 06:39 Poikilocytosis Not Reportable 08/25/17 06:39 Anisocytosis 1+ 08/25/17 06:39 Microcytosis Not Reportable 08/25/17 06:39 Macrocytosis Not Reportable 08/25/17 06:39 Spherocytes Not Reportable 08/25/17 06:39 Pappenheimer Bodies Not Reportable 08/25/17 06:39 Sickle Cells Not Reportable 08/25/17 06:39 Target Cells Not Reportable 08/25/17 06:39 Tear Drop Cells Not Reportable 08/25/17 06:39 Ovalocytes Not Reportable 08/25/17 06:39 Helmet Cells Not Reportable 08/25/17 06:39 Daily-[place] Bodies Not Reportable 08/25/17 06:39 [place] Rings Not Reportable 08/25/17 06:39 Arlyn Cells Not Reportable 08/25/17 06:39 Bite Cells Not Reportable 08/25/17 06:39 Crenated Cell Not Reportable 08/25/17 06:39 Elliptocytes Not Reportable 08/25/17 06:39 Acanthocytes (Spur) Not Reportable 08/25/17 06:39 Rouleaux Not Reportable 08/25/17 06:39 Hemoglobin C Crystals Not Reportable 08/25/17 06:39 Schistocytes Not Reportable 08/25/17 06:39 Malaria parasites Not Reportable 08/25/17 06:39 [place] Bodies Not Reportable 08/25/17 06:39 Hem Pathologist Commnt No 08/25/17 06:39 PT 13.4 Sec. (12.2-14.9) 08/23/17 19:40 INR 0.97 (0.87-1.13) 08/23/17 19:40 D-Dimer 1979.54 ng/mlDDU (0-234) H 08/23/17 22:20 VBG pH 7.367 (7.320-7.420) 08/23/17 19:47 Sodium 138 mmol/L (137-145) 08/30/17 05:31 Potassium 4.7 mmol/L (3.6-5.0) 08/30/17 05:31 Chloride 104.1 mmol/L (98-107) 08/30/17 05:31 Carbon Dioxide 20 mmol/L (22-30) L 08/30/17 05:31 Anion Gap 19 mmol/L 08/30/17 05:31 BUN 10 mg/dL (7-17) 08/30/17 05:31 Creatinine 0.5 mg/dL (0.7-1.2) L 08/30/17 05:31 Estimated GFR > 60 ml/min 08/30/17 05:31 BUN/Creatinine Ratio 20 % 08/30/17 05:31 Glucose 106 mg/dL (65-100) H 08/30/17 05:31 Lactic Acid 0.70 mmol/L (0.7-2.0) 08/23/17 22:34 Calcium 8.1 mg/dL (8.4-10.2) L 08/30/17 05:31 Total Bilirubin 0.30 mg/dL (0.1-1.2) 08/23/17 19:40 AST 31 units/L (5-40) 08/23/17 19:40 ALT 8 units/L (7-56) 08/23/17 19:40 Alkaline Phosphatase 54 units/L (35-129) 08/23/17 19:40 Total Protein 8.1 g/dL (6.3-8.2) 08/23/17 19:40 Albumin 3.0 g/dL (3.9-5) L 08/23/17 19:40 Albumin/Globulin Ratio 0.6 % 08/23/17 19:40 HCG, Qual Negative (Negative) 08/23/17 19:40 Urine Color Yellow (Yellow) 08/23/17 21:35 Urine Turbidity Clear (Clear) 08/23/17 21:35 Urine pH 7.0 (5.0-7.0) 08/23/17 21:35 Ur Specific [place] 1.015 (1.003-1.030) 08/23/17 21:35 Urine Protein <15 mg/dl mg/dL (Negative) 08/23/17 21:35 Urine Glucose (UA) Neg mg/dL (Negative) 08/23/17 21:35 Urine Ketones Neg mg/dL (Negative) 08/23/17 21:35 Urine Blood Neg (Negative) 08/23/17 21:35 Urine Nitrite Neg (Negative) 08/23/17 21:35 Urine Bilirubin Neg (Negative) 08/23/17 21:35 Urine Urobilinogen < 2.0 mg/dL (<2.0) 08/23/17 21:35 Ur Leukocyte Esterase Neg (Negative) 08/23/17 21:35 Urine WBC (Auto) 2.0 /HPF (0.0-6.0) 08/23/17 21:35 Urine RBC (Auto) 6.0 /HPF (0.0-6.0) 08/23/17 21:35 U Epithel Cells (Auto) 6.0 /HPF (0-13.0) 08/23/17 21:35 Urine Bacteria (Auto) 1+ /HPF (Negative) 08/23/17 21:35 Urine Mucus Few /HPF 08/23/17 21:35 RPR Nonreactive (Nonreactive) 08/25/17 16:12 Hepatitis A IgM Ab Non-reactive (NonReactive) 08/25/17 16:04 Hep Bs Antigen Non-reactive (Negative) 08/25/17 16:04 Hep B Core IgM Ab Non-reactive (NonReactive) 08/25/17 16:04 Hepatitis C Antibody Non-reactive (NonReactive) 08/25/17 16:04 HIV-1 RNA PCR copies/ml [id number] Copies/mL H 08/25/17 16:11 HIV-1 RNA (PCR) log 5.41 Log cps/mL H 08/25/17 16:11 HIV 1&2 Antibody Rapid Reactive (Non React) 08/25/17 09:00 HIV P24 Antigen Non react (Non React) 08/25/17 09:00 Influenza A (Rapid) Negative (Negative) 08/23/17 21:35 Influenza B (Rapid) Negative (Negative) 08/23/17 21:35
[2017-08-30] MEDS: DUONEB *Not for PRN Use IH SCH ×3 (11:12→19:57)
[2017-08-30 13:34] LABS: HIV-2 Antibody Differentiation SEE SCANNED RESULTS
[2017-08-30 13:35] LABS: HIV-1 Antibody Differentiation SEE SCANNED RESULTS
--- NOTE | 2017-08-30 14:21 | Progress Note ---
Assessment and Plan Assessment: 1) Sepsis: resolved. Etiology most likely PJP pneumonia. 2) Acute respiratory failure: resolved 3) Likely PJP pneumonia: -CTA showed no PE however show bilateral scattered infiltrates. -Influenza A and B-. 4) Newly diagnosed HIV / AIDS: HIV rapid antigen positive. -[id number] on 08/25 -CD4=pending RPR neg -Viral hepatitis panel negative 5) Weight loss Plan: -continue Bactrim DS to 2 tablets by mouth 3 times a day- day 8 of 21 -stop Levaquin-day 8 of 8 -continue prednisone 40 mg by mouth twice a day in view of hypoxemia for 5 days then 40 mg qday for 5 days, then 20 mg qday for 11 days -f/u genotype, and CD4 - pending -acontinue azithromycin 1200 mg qweek for MAC prophylaxis -OK to d/c on: Bactrim DS to 2 tablets by mouth 3 times a day for 21 days until 09/12 Azithromycin 1200 mg po qweek Prednisone 40 mg by mouth qday for 5 days, then 20 mg qday for 11 days ID clinic f/u on 09/08 pt to make apt OK to d/c from ID stando point after HIV genotype has been collected. Thank you for your consultation, will follow up with you. Tete Vargas MD Infectious Diseases Specialist [facility] M [phone] Subjective Date of service: 08/30/17 Principal diagnosis: PCP pneumonia Interval history: Feels better, she is eatingok, had a low grade fever on 08/29 100.8. Denies SOB, cough. Microbiology: Blood cultures: 08/23 neg Urine cultures: 08/23 10-100K Current Antimicrobials: Bactrim 08/23 Levaquin 08/23 Previous Antimicrobials: Objective - Exam Narrative Exam: General appearance: Alert in NAD, pleasant, cachectic Eyes: anicteric sclerae, moist conjunctivae; no lid-lag; PERRLA HENT: Atraumatic; oropharynx mild erythema Neck: Trachea midline; supple, no thyromegaly or lymphadenopathy Lungs: coarse BS michelle CV: rrr Abdomen: Soft, non-tender; no masses or hepatosplenomegaly Extremities: No peripheral edema or extremity lymphadenopathy Skin: Normal temperature, turgor and texture; no rash, ulcers or subcutaneous nodules Psych: Appropriate affect, alert and oriented to person, place and time. Neuro: alert and oriented x 3. Moving all extermities Lines: No CVL / PICC - Constitutional Vitals: Vital Signs Temp Pulse Resp BP Pulse Ox 98.5 F 88 16 114/79 98 08/30/17 08:16 08/30/17 11:13 08/30/17 11:13 08/30/17 08:16 08/30/17 10:00 Temperature -Last 24 Hours Temperature 98.5 F Temperature 97.8 F Temperature 98.7 F - Labs CBC & Chem 7: 08/30/17 05:31 08/30/17 05:31 Labs: Abnormal lab results 08/30/17 08/30/17 Range/Units 05:31 05:31 WBC 12.7 H (4.5-11.0) K/mm3 RBC 3.46 L (3.65-5.03) M/mm3 Hgb 9.3 L (10.1-14.3) gm/dl Hct 28.3 L (30.3-42.9) % MCH 27 L (28-32) pg Carbon Dioxide 20 L (22-30) mmol/L Creatinine 0.5 L (0.7-1.2) mg/dL Glucose 106 H (65-100) mg/dL Calcium 8.1 L (8.4-10.2) mg/dL
[2017-08-31] MEDS: TESSALON PERLES PO SCH ×2 (00:18→05:24)
[2017-08-31] MEDS: ROBITUSSIN AC PO PRN ×2 (03:29→15:40)
[2017-08-31] MEDS: BACTRIM DS PO SCH (05:06)
[2017-08-31] MEDS: NACL 0.9% 1000 ML 1,000 ML IV SCH (05:09)
[2017-08-31 06:40] LABS: Hematocrit 29.6 % (30.3-42.9); Hemoglobin 9.4 gm/dl (10.1-14.3); Mean Corpuscular HGB Conc 32 % (30-34); Mean Corpuscular Hemoglobin 27 pg (28-32); Mean Corpuscular Volume 84 fl (79-97); Platelet Count 347 K/mm3 (140-440); Red Blood Count 3.51 M/mm3 (3.65-5.03); Red Cell Distribution Width 14.8 % (13.2-15.2)
[2017-08-31 06:58] LABS: BUN/Creatinine Ratio 20; Blood Urea Nitrogen 12 mg/dL (7-17); Calcium 8.4 mg/dL (8.4-10.2); Hemolysis Index 19
[2017-08-31] MEDS: DUONEB *Not for PRN Use IH SCH ×2 (07:35→14:32)
[2017-08-31 07:54] LABS: Anisocytosis 1+; Band Neutrophils # (Manual) 0.1 K/mm3; Basophils % (Manual) 0 % (0.0-1.8); Eosinophils % (Manual) 0 % (0.0-4.3); Myelocytes # (Manual) 0.1 K/mm3; Ovalocytes 1+; Total Cells Counted 100
--- NOTE | 2017-08-31 08:39 | Discharge Summary ---
Providers - Providers Date of Admission: 08/24/17 02:04 Date of discharge: 08/31/17 Attending physician: CHILANGO GARZON 08/25/17 06:55 Consult to Physician [CONS] Routine Comment: Consulting Provider: CALDERON MARIA Physician Instructions: Reason For Exam: sepsis, bilateral pna Primary care physician: CLINICAL RESEARCH COORDINATOR Hospitalization Reason for admission: sob Condition: Fair Hospital course: Patient is 27-year-old woman with a history of asthma who presents with shortness of breath, pulse ox 86%. Patient denies having a history of HIV. Patient was admitted with diagnosis of acute hypoxia respiratory failure and sepsis secondary to bilateral pneumonia. Patient was seen by infectious disease consultation and found to have suspected PE RONEY pneumonia. CTA showed no PE however show bilateral scattered no fractures. Influenza A and B were negative. Patient was newly diagnosed with HIV/AIDS with HIV rapid antigen positive. Viral load 258,000 on 08/25. RPR was found to be negative and viral hepatitis panel negative. Patient was treated with IV antibiotics and eventually stabilized. ID recommended to continue Bactrim DS 2 tabs by mouth 3 times a day for a total of 21 days and prednisone 40 mg by mouth twice a day in view of hypoxemia for 5 days then 40 mg daily for 5 days then 20 mg for 11 days. Patient is to follow-up genotype and CD4 as an outpatient. Continue azithromycin 1200 mg weekly for MAC prophylaxis. Dedicated discharge time 32 minutes. Disposition: -01 TO HOME OR SELFCARE Time spent for discharge: 32 - Discharge Diagnoses (1) HIV (human immunodeficiency virus infection) Status: Acute (2) Pneumonia Status: Acute Qualifiers: Pneumonia type: due to unspecified organism Laterality: unspecified laterality Lung location: unspecified part of lung Qualified Code(s): J18.9 - Pneumonia, unspecified organism (3) Sepsis Status: Acute Qualifiers: Sepsis type: sepsis due to unspecified organism Qualified Code(s): A41.9 - Sepsis, unspecified organism Core Measure Documentation - Palliative Care Palliative Care/ Comfort Measures: Not Applicable - Core Measures Any of the following diagnoses?: none Exam - Constitutional Vitals: Temp Pulse Resp BP Pulse Ox 98.2 F 99 H 16 117/74 93 08/31/17 00:38 08/31/17 07:47 08/31/17 08:16 08/31/17 00:38 08/31/17 07:46 General appearance: Present: no acute distress, well-nourished - EENT Eyes: Present: PERRL ENT: hearing intact, clear oral mucosa - Neck Neck: Present: supple, normal ROM - Respiratory Respiratory effort: normal Respiratory: bilateral: CTA - Cardiovascular Heart Sounds: Present: S1 & S2. Absent: rub, click - Extremities Extremities: pulses symmetrical, No edema Peripheral Pulses: within normal limits - Abdominal General gastrointestinal: Present: soft, non-tender, non-distended, normal bowel sounds Female genitourinary: Present: normal - Integumentary Integumentary: Present: clear, warm, dry - Musculoskeletal Musculoskeletal: gait normal, strength equal bilaterally - Psychiatric Psychiatric: appropriate mood/affect, intact judgment & insight - Neurologic Neurologic: CNII-XII intact, moves all extremities Plan Activity: advance as tolerated Weight Bearing Status: Weight Bear as Tolerated Diet: regular Follow up with: PRIMARY CARE,MD [Primary Care Provider] - 3-5 Days Prescriptions: Azithromycin 1,200 mg PO 1XW #52 tablet Benzonatate [Tessalon Perles] 100 mg PO Q6HR #20 capsule guaiFENesin/CODEINE [Robitussin AC] 10 ml PO Q4H PRN #1 oral.liqd PRN Reason: Cough Pantoprazole [Protonix TAB] 40 mg PO QDAY #30 tablet Prednisone 40 mg PO DAILY #5 tablet Prednisone 20 mg PO DAILY #11 tablet Sulfamethoxazole/Trimethoprim [Bactrim DS TAB] 2 each PO Q8HR #63 tablet
--- NOTE | 2017-08-31 09:21 | Progress Note ---
Assessment and Plan Assessment: 1) Sepsis: resolved. Etiology most likely PJP pneumonia. 2) Acute respiratory failure: resolved 3) Likely PJP pneumonia: -CTA showed no PE however show bilateral scattered infiltrates. -Influenza A and B negative. 4) Newly diagnosed HIV / AIDS: HIV rapid antigen positive. -[id number] on 08/25 -CD4=pending -RPR neg -Viral hepatitis panel negative -GC and chlamydia negative 5) Weight loss Plan: -continue Bactrim DS to 2 tablets by mouth 3 times a day- day 9 of 21 -continue prednisone 40 mg by mouth twice a day for 5 days then 40 mg qday for 5 days, then 20 mg qday for 11 days -f/u genotype, and CD4 - pending -continue azithromycin 1200 mg qweek for MAC prophylaxis -OK to d/c on: Bactrim DS to 2 tablets by mouth 3 times a day for 21 days until 09/12 Azithromycin 1200 mg po qweek Prednisone 40 mg by mouth qday for 5 days, then 20 mg qday for 11 days ID clinic f/u on 09/08 pt to make apt Thank you for your consultation, will follow up with you. Tete Doran MD Infectious Diseases Specialist [facility] M [phone] O [phone] Subjective Date of service: 08/31/17 Principal diagnosis: PCP pneumonia Interval history: Feels better, she is eating ok, no fever for 48h. Denies SOB, minimal cough. Microbiology: Blood cultures: 08/23 neg Urine cultures: 08/23 10-100K Current Antimicrobials: Bactrim 08/23 Previous Antimicrobials: Levaquin 08/23-08/30 Objective - Exam Narrative Exam: General appearance: Alert in NAD, pleasant, cachectic Eyes: anicteric sclerae, moist conjunctivae; no lid-lag; PERRLA HENT: Atraumatic; oropharynx mild erythema Neck: Trachea midline; supple, no thyromegaly or lymphadenopathy Lungs: coarse BS michelle CV: rrr Abdomen: Soft, non-tender; no masses or hepatosplenomegaly Extremities: No peripheral edema or extremity lymphadenopathy Skin: Normal temperature, turgor and texture; no rash, ulcers or subcutaneous nodules Psych: Appropriate affect, alert and oriented to person, place and time. Neuro: alert and oriented x 3. Moving all extermities Lines: No CVL / PICC - Constitutional Vitals: Vital Signs Temp Pulse Resp BP Pulse Ox 98.3 F 99 H 16 109/69 93 08/31/17 07:45 08/31/17 07:47 08/31/17 08:16 08/31/17 07:45 08/31/17 07:46 Temperature -Last 24 Hours Temperature 98.3 F Temperature 98.2 F Temperature 97.8 F - Labs CBC & Chem 7: 08/31/17 05:33 08/31/17 05:33 Labs: Abnormal lab results 08/31/17 08/31/17 Range/Units 05:33 05:33 WBC 13.2 H (4.5-11.0) K/mm3 RBC 3.51 L (3.65-5.03) M/mm3 Hgb 9.4 L (10.1-14.3) gm/dl Hct 29.6 L (30.3-42.9) % MCH 27 L (28-32) pg Seg Neuts % (Manual) 95.0 H (40.0-70.0) % Lymphocytes % (Manual) 1.0 L (13.4-35.0) % Seg Neutrophils # Man 12.5 H (1.8-7.7) K/mm3 Lymphocytes # (Manual) 0.1 L (1.2-5.4) K/mm3 Carbon Dioxide 21 L (22-30) mmol/L Creatinine 0.6 L (0.7-1.2) mg/dL
[2017-08-31] MEDS: HEPARIN SUB-Q SCH (10:31)
[2017-08-31] MEDS: DIFLUCAN PO SCH (10:31)
[2017-08-31] MEDS: PROTONIX PO SCH (10:31)
[2017-08-31 13:26] VITALS: BP 110/64
[2017-08-31 15:07] LABS: CD4/CD8 Ratio 0.04 (0.86-5.00)
== END 2017-08-31 15:44 | disposition home or self-care (01) | DRG 974 ==
LOC: ED 18:20 → 4A 08-24 02:04 → 3A 08-28 17:39
PROVIDERS: ADMIT Internal Medicine; ATTEND Hospitalist
DX: B20 Human immunodeficiency virus [HIV] disease (principal); A41.9 Sepsis, unspecified organism; J96.01 Acute respiratory failure with hypoxia; J18.9 Pneumonia, unspecified organism; Z87.891 Personal history of nicotine dependence; J45.909 Unspecified asthma, uncomplicated; B37.0 Candidal stomatitis; J42 Unspecified chronic bronchitis
CPT/HCPCS: 36415; 71045; 71275; 80048; 80053; 80074; 81001; 82024; 82140; 82805; 84703; 85007; 85025; 85027; 85379; 85610; 86592; 86689; 87040; 87086; 87400; 87536; 87591; 87806; 87901; 93005; 93010; 94640; 94760; 96361; 96365; 96375; J0456; J0696; J1644; J1885; J1956; J2930; J3370; J7030; J7040; J7050; J7512; Q9967